=== PATIENT | female | born 1975 | race Hispanic/Latino ===

== ENCOUNTER 2017-01-11 09:18 | Day surgery (SDC) | payer MEDICARE ==
[~2017-01-11 09:18] MED LIST: ANCEF/STERILE WATER 2 GM/20 ML 2 GM/20 ML SYRINGE IV NR; NACL 0.9% 1000 ML 1,000 ML IV SCH
[2017-01-11] MEDS ORDERED: NACL 0.9% 500 ML 500 ML IV SCH (10:00)
[2017-01-11 10:15] LABS: Basophils % (Auto) 0.6 % (0.0-1.8); Eosinophils % (Auto) 8.7 % (0.0-4.3); Hematocrit 35.1 % (30.3-42.9); Mean Corpuscular HGB Conc 31 % (30-34); Mean Corpuscular Volume 82 fl (79-97); Platelet Count 254 K/mm3 (140-440); Red Blood Count 4.31 M/mm3 (3.65-5.03); Red Cell Distribution Width 16.4 % (13.2-15.2); White Blood Count 8.4 K/mm3 (4.5-11.0)
[2017-01-11] MEDS ORDERED: PERCOCET 5/325 PO ONE (10:15)
[2017-01-11 10:19] LABS: Mean Corpuscular Hemoglobin 26 pg (28-32)
[2017-01-11 10:26] LABS: Anion Gap 16 mmol/L; Blood Urea Nitrogen 8 mg/dL (7-17); Calcium 9.1 mg/dL (8.4-10.2); Carbon Dioxide 26 mmol/L (22-30); Chloride 99.7 mmol/L (98-107); Glucose 93 mg/dL (65-100); Potassium 4.8 mmol/L (3.6-5.0); Sodium 137 mmol/L (137-145)
[2017-01-11] MEDS ORDERED: TORADOL IV ONE (10:47)
[2017-01-11] MEDS ORDERED: TORADOL ONE (10:48)
[2017-01-11] MEDS ORDERED: NACL 0.9% 500 ML IR ONE (12:29)
[2017-01-11] MEDS ORDERED: BENADRYL ONE (12:29)
[2017-01-11] MEDS ORDERED: XYLOCAINE 1%/ EPI 1:100,000 INFILTRATI ONE (12:32)
[2017-01-11] MEDS ORDERED: ANCEF/STERILE WATER 2 GM/20 ML 2 GM/20 ML SYRINGE IV ONE (12:33)
[2017-01-11] MEDS: SUBLIMAZE ONE ×4 (12:55→13:18)
[2017-01-11] MEDS: VERSED ONE ×4 (12:55→13:18)
[2017-01-11] MEDS ORDERED: SILVER NITRATE TP ONE (13:13)
--- NOTE | 2017-01-11 13:48 | Short Stay Summary ---
Short Stay Documentation Date of service: 01/11/17 Narrative H&P: 41-year-old female with accidental dislodgment indwelling jejunostomy tube who presents for J-tube placement. - History H&P: obtained from office - Allergies and Medications Current Medications: Allergies ibuprofen Adverse Reaction (Verified 03/13/14 11:35) Swelling policosanol [From Lipex] Adverse Reaction (Verified 03/13/14 11:35) Unknown IV MORPHINE Allergy (Uncoded 09/10/14 11:01) Itching IV CONTRAST Adverse Reaction (Uncoded 03/13/14 11:09) Vomiting Home Medications Medication Instructions Recorded Confirmed Last Taken Type LORazepam [Ativan] 2 mg PO PRN PRN 03/13/14 01/11/17 12/14/15 21:00 History Oxycodone HCl/Acetaminophen 1 tab PO Q4HR PRN 03/13/14 01/11/17 01/11/17 05:30 History [Percocet 10-325 mg] 1 tab clonazePAM [clonazePAM] 1 mg PO HS PRN 01/11/17 01/11/17 01/10/17 History 1mg diphenhydrAMINE [Benadryl CAP] 50 mg PO PRN PRN 01/11/17 01/11/17 01/10/17 19: 30 History 50mg Active Medications Cefazolin Sodium (Ancef/Sterile Water 2 Gm/20 Ml) 2 gm in 20 mls @ 80 mls/hr IV PREOP NR PRN Reason: Protocol Stop: 01/11/17 23:00 Sodium Chloride (Nacl 0.9% 500 Ml) 500 mls @ 50 mls/hr IV DIRECT LAURA - Physical exam General appearance: no acute distress Lungs: Normal air movement Gastrointestinal: other (significant tenderness around the jejunostomy tube) - Brief post op/procedure progress note Date of procedure: 01/11/17 Pre-op diagnosis: Gastroparesis requiring feeding tube Post-op diagnosis: same Procedure: J tube placement Anesthesia: local (w/ conscious sedation) Surgeon: RADHA TURPIN Estimated blood loss: minimal Condition: stable - Hospital course Hospital course: Ready for discharge. Tolerated procedure well. - Disposition Condition at discharge: Stable Disposition: DC-01 TO HOME OR SELFCARE Short Stay Discharge Plan Activity: advance as tolerated Weight Bearing Status: Weight Bear as Tolerated Diet: advance as tolerated Wound: keep clean and dry Follow up with: SUDHIR CHAVEZ MD [Primary Care Provider] - 7 Days
--- NOTE | 2017-01-11 13:49 | Operative Report ---
Operative Report Operative Report: EXAM: 1. Fluoroscopic guided cannulation of the jejunostomy ostomy 2. Contrast injection in the jejunum 3. Fluoroscopic guided placement of a 18 Fr 2.3 cm stomal length low profile enteric tube in the jejunum. DATE: 01/11/17 LOAN SERVICING SPECIALIST: RADHA TURPIN MD INDICATION: Severe gastroparesis with long-standing jejunostomy tube with accidental dislodgment of tube and no existing jejunostomy tube. MEDICATIONS: Please see nursing report for full details. DEVICES: 18 Tajik 2.3 cm stomal length low profile enteric tube (Elizabeth-Luis Miguel) CONTRAST: Please see nursing report for full details. PROCEDURE: The risks, benefits, and alternatives were discussed with the patient; written informed consent was obtained. The patient's abdomen was prepped and draped in a sterile fashion with Betadine. Upon evaluation, there was chemical irritation around the jejunostomy tube due to leaking jejunal contents on the skin. There were slight excoriations in the tract. The tract was cannulated with an angled catheter and with the use of a Moseley wire, and was gently probed and the angled catheter was positioned in the jejunum. Contrast was injecting confirming position within the jejunum. The angled catheter was in the efferent limb of the jejunum. Moseley wire was passed through the catheter. After the tract was properly lubricated with sterile gel, I anesthetized the skin with 1% lidocaine. I then lubricated the enteric tube. Serial dilatation was performed. The enteric tube was advanced over the wire and positioned in the jejunum. The balloon was inflated with 3-4 mL of saline mixed with trace contrast. Wire was removed. Contrast was injected through the enteric tube ensuring that contrast could pass in both directions through the jejunum. No evidence of obstruction. The tube was injected with saline. No leakage of saline around the tube. Silver nitrate was then applied to the tract in order to cauterize the small excoriations around the tract. 4 x 4 was placed around the tube. Patient tolerated the procedure well. She was brought to the outpatient procedure unit in stable condition. FINDINGS: Please see above in procedure section. IMPRESSION: Successful fluoroscopic guided placement of a jejunostomy tube.
[2017-01-11 14:09] VITALS: BP 105/56
--- NOTE | 2017-01-16 15:13 | Addendum Note ---
- Addendum Date: 02/04/17 Note: Although already dictated and appropriately specified, I was requested to perform an addendum to indicate the type of chemical cauterization used on the granulation within the J tube tract. Silver nitrate, as previously specified, was used to chemically cauterize the granulation tissue in the J tube tract.
== END 2017-01-11 14:15 | disposition home or self-care (01) ==
LOC: OPU 09:18
PROVIDERS: ATTEND Radiology Diagnostic Radiology
DX: K94.13 Enterostomy malfunction (principal); K31.84 Gastroparesis; D64.9 Anemia, unspecified; K21.9 Gastro-esophageal reflux disease without esophagitis; F17.210 Nicotine dependence, cigarettes, uncomplicated; Z88.8 Allergy status to other drugs, medicaments and biological substances; Z88.5 Allergy status to narcotic agent; Z91.041 Radiographic dye allergy status; Z90.710 Acquired absence of both cervix and uterus; Z90.49 Acquired absence of other specified parts of digestive tract; Z90.3 Acquired absence of stomach [part of]; Z98.1 Arthrodesis status; Z98.890 Other specified postprocedural states; Z72.89 Other problems related to lifestyle; Z79.899 Other long term (current) drug therapy; Z83.3 Family history of diabetes mellitus; Z80.9 Family history of malignant neoplasm, unspecified; Y83.8 Other surgical procedures as the cause of abnormal reaction of the patient, or of later complication, without mention of misadventure at the time of the procedure
CPT/HCPCS: 17250; 36415; 49440; 80048; 85025; C1751; C1769; J0690; J1885; J2250; J3010; J1200; J2930; Q9967

== ENCOUNTER 2017-11-08 11:00 | Day surgery (SDC) | payer MEDICARE ==
[2017-11-08 11:49] LABS: Basophils # (Auto) 0.1 K/mm3 (0.0-0.1); Eosinophils # (Auto) 0.2 K/mm3 (0.0-0.4); Hematocrit 39.4 % (30.3-42.9); Hemoglobin 12.6 gm/dl (10.1-14.3); Lymphocytes # (Auto) 1.6 K/mm3 (1.2-5.4); Lymphocytes % (Auto) 20.7 % (13.4-35.0); Mean Corpuscular HGB Conc 32 % (30-34); Mean Corpuscular Hemoglobin 28 pg (28-32); Mean Corpuscular Volume 86 fl (79-97); Monocytes # (Auto) 0.7 K/mm3 (0.0-0.8); Monocytes % (Auto) 8.7 % (0.0-7.3); Platelet Count 260 K/mm3 (140-440); Red Blood Count 4.57 M/mm3 (3.65-5.03); Red Cell Distribution Width 19.7 % (13.2-15.2)
[2017-11-08 11:59] LABS: BUN/Creatinine Ratio 33; Blood Urea Nitrogen 13 mg/dL (7-17); Calcium 9.1 mg/dL (8.4-10.2); Hemolysis Index 2
[2017-11-08] MEDS ORDERED: DILAUDID IV NR (11:59)
[2017-11-08 12:00] LABS: INR 0.9 (0.87-1.13); Partial Thromboplastin Time 28.3 Sec. (24.2-36.6)
[2017-11-08] MEDS ORDERED: BENADRYL ONE (12:01)
[2017-11-08] MEDS ORDERED: BENADRYL IV ONE ×2 (12:16→13:37)
[2017-11-08] MEDS ORDERED: NACL 0.9% 500 ML IR ONE (13:43)
[2017-11-08] MEDS ORDERED: NACL 0.9% 250ML 250 ML ONE (13:51)
[2017-11-08] MEDS ORDERED: DILAUDID IV ONE (13:51)
[2017-11-08] MEDS ORDERED: XYLOCAINE 2% INFILTRATI ONE (13:58)
[2017-11-08] MEDS: VERSED ONE ×2 (14:00→14:03)
[2017-11-08] MEDS ORDERED: SILVER NITRATE TP ONE (14:00)
[2017-11-08] MEDS: SUBLIMAZE ONE ×2 (14:00→14:03)
[2017-11-08] MEDS ORDERED: VERSED ONE (14:03)
[2017-11-08] MEDS ORDERED: SUBLIMAZE ONE (14:03)
--- NOTE | 2017-11-08 14:45 | Short Stay Summary ---
Short Stay Documentation Date of service: 11/08/17 Narrative H&P: 41 year old female with J tube malfunction. - History Principal diagnosis: J tube malfunction, gastroparesis H&P: obtained from office - Allergies and Medications Current Medications: Allergies ibuprofen Adverse Reaction (Verified 03/13/14 11:35) Swelling policosanol [From Lipex] Adverse Reaction (Verified 03/13/14 11:35) Unknown IV MORPHINE Allergy (Uncoded 09/10/14 11:01) Itching IV CONTRAST Adverse Reaction (Uncoded 03/13/14 11:09) Vomiting Home Medications Medication Instructions Recorded Confirmed Last Taken Type LORazepam [Ativan] 2 mg PO PRN PRN 03/13/14 01/11/17 11/07/17 17:00 History 2mg Oxycodone HCl/Acetaminophen 1 tab PO Q4HR PRN 03/13/14 01/11/17 11/08/17 07:00 History [Percocet 10-325 mg] 10/325 Active Medications Hydromorphone HCl (Dilaudid) 0.5 mg IV ONCE NR Stop: 11/08/17 23:00 Last Admin: 11/08/17 12:09 Dose: 0.5 mg Cefazolin Sodium (Ancef/Sterile Water 2 Gm/20 Ml) 2 gm in 20 mls @ 80 mls/hr IV PREOP NR; Protocol Stop: 11/08/17 21:00 Sodium Chloride (Nacl 0.9% 1000 Ml) 1,000 mls @ 42 mls/hr IV DIRECT LAURA Methylprednisolone Sodium Succinate (Solu-Medrol) 125 mg IV PREOP NR Stop: 11/08/17 23:00 Last Admin: 11/08/17 12:10 Dose: 125 mg - Physical exam General appearance: no acute distress Lungs: Normal air movement Gastrointestinal: other (pain at J tube insertion) Extremities: normal temperature, normal color - Brief post op/procedure progress note Date of procedure: 11/08/17 Pre-op diagnosis: J tube malfunction, gastroparesis Post-op diagnosis: same Procedure: Silver nitrate application and J tube exchange Anesthesia: local (w/ conscious sedation) Surgeon: RADHA TURPIN Estimated blood loss: minimal Condition: stable - Hospital course Hospital course: Ready for discharge. - Disposition Condition at discharge: Stable Disposition: DC-01 TO HOME OR SELFCARE - Discharge Diagnoses (1) Gastroparesis Status: Acute (2) Jejunostomy tube leak Status: Acute (3) Jejunostomy tube site pain Status: Acute Short Stay Discharge Plan Activity: advance as tolerated Weight Bearing Status: Weight Bear as Tolerated Diet: advance as tolerated Wound: keep clean and dry, other (apply small amt of triple antibiotic to the area and use lidocaine gel to anesthetize as needed) Follow up with: SUDHIR CHAVEZ MD [Primary Care Provider] - 7 Days Forms: Post Sedation D/C Instructions
--- NOTE | 2017-11-08 14:45 | Operative Report ---
Operative Report Operative Report: EXAM: 1. Jejunostomy tube exchange under image guidance with contrast injection (18 Fr , 2.3 cm stomal length, 3-4 mL of fluid in balloon) 2. Silver nitrate application of granulation tissue at the jejunostomy tract Clinical indication: Female with severe gastroparesis requiring jejunostomy tube who presents for exchange with pain at the jejunostomy tube site. Patient was doing well for multiple months since prior exchange, at but within the last month has had increasing pain at the jejunostomy tube site. On clinical exam, there are some erosions at this site. Date: 11/08/17 Aircraft Hydraulic Equipment Mechanic: Nathan Shirley M.D. Medications: Conscious sedation using Versed and fentanyl was performed under guidance of radiologic nursing. Continuous cardiopulmonary monitoring was utilized. Procedure: Following an explanation of the risks, benefits, and alternatives; written informed consent was obtained. The patient was brought to the angiography suite and placed in supine position on the examination table. The jejunostomy tube site was prepped and draped in a sterile fashion. Jejunostomy tube site was evaluated. There are small skin erosions along the jejunostomy tube tract and on the skin adjacent to the tube. These areas are extremely painful to touch. Lidocaine was used to anesthetize the jejunostomy tube site. The tract had some granulation tissue within it which was painful. Contrast was injected to the existing jejunostomy tube demonstrating intraluminal positioning. 0.035 wire was advanced through the jejunostomy tube. The existing jejunostomy tube was removed over a wire (18 Fr ; 2.3 cm stomal length). A new jejunostomy tube (18 Fr ; 2.3 cm stomal length) was advanced over the wire. Balloon was insufflated with 3-4 mL of saline with extremely dilute contrast. The wire was removed. Contrast was injected confirming intraluminal position with both antegrade and retrograde flow of contrast. The balloon was not obstructing the jejunum. Silver nitrate was applied to the jejunostomy tube tract and the superficial skin areas. Patient was told to apply triple antibiotic mixed with lidocaine gel to the site in order to provide relief and allow healing. If this did not improve, she was to contact our office and we could provide her with further assistance. The patient tolerated the procedure well. No immediate postprocedural complication. Impression: 1. Successful jejunostomy tube exchange under fluoroscopic guidance. 2. Successful silver nitrate cauterization of granulation tissue.
[2017-11-08 16:27] VITALS: BP 131/77
== END 2017-11-08 14:50 | disposition home or self-care (01) ==
LOC: CATHLABREC 11:00
PROVIDERS: ATTEND Radiology Diagnostic Radiology
DX: K94.13 Enterostomy malfunction (principal); K31.84 Gastroparesis; K21.9 Gastro-esophageal reflux disease without esophagitis; F17.210 Nicotine dependence, cigarettes, uncomplicated; Z90.710 Acquired absence of both cervix and uterus; Z88.4 Allergy status to anesthetic agent; Z91.041 Radiographic dye allergy status; Z91.048 Other nonmedicinal substance allergy status; Z90.49 Acquired absence of other specified parts of digestive tract; Z95.5 Presence of coronary angioplasty implant and graft; Z79.01 Long term (current) use of anticoagulants; Y83.3 Surgical operation with formation of external stoma as the cause of abnormal reaction of the patient, or of later complication, without mention of misadventure at the time of the procedure
CPT/HCPCS: 17250; 36415; 49451; 80048; 85025; 85610; 85730; 96374; 96375; 96376; J1170; J2250; J2930; J3010; J7050; J1200; Q9967

== ENCOUNTER 2018-02-14 11:32 | Day surgery (SDC) | payer MEDICARE ==
[2018-02-14 12:44] LABS: Basophils # (Auto) 0.1 K/mm3 (0.0-0.1); Basophils % (Auto) 0.7 % (0.0-1.8); Eosinophils # (Auto) 0.3 K/mm3 (0.0-0.4); Hematocrit 40.6 % (30.3-42.9); Hemoglobin 14.1 gm/dl (10.1-14.3); Lymphocytes # (Auto) 1.4 K/mm3 (1.2-5.4); Mean Corpuscular HGB Conc 35 % (30-34); Mean Corpuscular Hemoglobin 32 pg (28-32); Mean Corpuscular Volume 93 fl (79-97); Monocytes # (Auto) 0.5 K/mm3 (0.0-0.8); Monocytes % (Auto) 5.5 % (0.0-7.3); Platelet Count 254 K/mm3 (140-440); Red Blood Count 4.35 M/mm3 (3.65-5.03); Red Cell Distribution Width 13.5 % (13.2-15.2)
[2018-02-14 12:54] LABS: BUN/Creatinine Ratio 30; Blood Urea Nitrogen 12 mg/dL (7-17); Hemolysis Index 7
[2018-02-14 12:55] LABS: INR 1.46 (0.87-1.13)
[2018-02-14 12:56] LABS: Partial Thromboplastin Time 36.8 Sec. (24.2-36.6)
[2018-02-14] MEDS ORDERED: ANCEF/STERILE WATER 2 GM/20 ML 0 GM/0 ML SYRINGE IV ONE (13:24)
[2018-02-14] MEDS ORDERED: NACL 0.9% 500 ML IR ONE (13:24)
[2018-02-14] MEDS ORDERED: VERSED ONE (13:24)
[2018-02-14] MEDS ORDERED: XYLOCAINE 2% INFILTRATI ONE (13:24)
[2018-02-14] MEDS ORDERED: PEPCID IV ONE (13:32)
[2018-02-14] MEDS ORDERED: SILVER NITRATE TP ONE (13:32)
[2018-02-14] MEDS ORDERED: BENADRYL IV ONE (13:32)
[2018-02-14] MEDS ORDERED: BENADRYL ONE (13:34)
[2018-02-14] MEDS ORDERED: SODIUM BICARBONATE IV ONE (14:17)
[2018-02-14] MEDS: SUBLIMAZE ONE ×4 (14:20→14:39)
[2018-02-14] MEDS: VERSED ONE ×2 (14:26→14:33)
--- NOTE | 2018-02-14 15:15 | Short Stay Summary ---
Short Stay Documentation Date of service: 02/14/18 Narrative H&P: 42 year old female with J tube exchange - History Principal diagnosis: J tube leakage H&P: obtained from office - Allergies and Medications Current Medications: Allergies ibuprofen Adverse Reaction (Verified 03/13/14 11:35) Swelling policosanol [From Lipex] Adverse Reaction (Verified 03/13/14 11:35) Unknown IV MORPHINE Allergy (Uncoded 09/10/14 11:01) Itching IV CONTRAST Adverse Reaction (Uncoded 03/13/14 11:09) Vomiting Home Medications Medication Instructions Recorded Confirmed Last Taken Type LORazepam [Ativan] 2 mg PO PRN PRN 03/13/14 01/11/17 02/11/18 History 2 mg Oxycodone HCl/Acetaminophen 1 tab PO Q4HR PRN 03/13/14 01/11/17 02/14/18 08:00 History [Percocet 10-325 mg] 1 tab Active Medications Cefazolin Sodium (Ancef/Sterile Water 2 Gm/20 Ml) 2 gm in 20 mls @ 80 mls/hr IV PREOP NR; Protocol Stop: 02/14/18 23:59 Sodium Chloride (Nacl 0.9% 1000 Ml) 1,000 mls @ 42 mls/hr IV DIRECT LAURA Last Admin: 02/14/18 12:54 Dose: 42 mls/hr - Physical exam General appearance: mild distress (from J tube site) Lungs: Normal air movement Gastrointestinal: tenderness (at J tube site) - Brief post op/procedure progress note Date of procedure: 02/14/18 Pre-op diagnosis: J tube malfunction Post-op diagnosis: same Procedure: Silver nitrate cauterization J tube exchange Anesthesia: local (w/ conscious sedation) Surgeon: RADHA TURPIN Estimated blood loss: minimal Condition: stable - Hospital course Hospital course: Tolerated procedure well. Ready for discharge. - Disposition Condition at discharge: Stable Disposition: DC-01 TO HOME OR SELFCARE - Discharge Diagnoses (1) Gastroparesis Status: Acute (2) Jejunostomy tube leak Status: Acute (3) Jejunostomy tube site pain Status: Acute Short Stay Discharge Plan Activity: advance as tolerated Weight Bearing Status: Weight Bear as Tolerated Diet: regular Wound: keep clean and dry Additional Instructions: Notify Primary Medical Doctor for any bleeding or swelling to site, follow up with Primary Medical Doctor in 1 week, return to (ER) emergency Room for medical emergencies. Follow up with: SUDHIR CHAVEZ MD [Primary Care Provider] - 7 Days
[2018-02-14 15:33] VITALS: BP 118/65
--- NOTE | 2018-02-14 16:10 | Operative Report ---
Operative Report Operative Report: EXAM: 1. Jejunostomy tube exchange under image guidance with contrast injection (18 Fr , 2.3 cm stomal length, 10 mL of fluid in balloon) 2. Silver nitrate application of granulation tissue at the jejunostomy tract Clinical indication: 42 year old female with bowel surgery and gastroparesis requiring jejunostomy tube who presents for exchange with pain at the jejunostomy tube site. Date: 02/14/18 Research & Analytics Manager: Nathan Shirley M.D. Medications: Conscious sedation using Versed and fentanyl was performed under guidance of radiologic nursing. Continuous cardiopulmonary monitoring was utilized. Procedure: Following an explanation of the risks, benefits, and alternatives; written informed consent was obtained. The patient was brought to the angiography suite and placed in supine position on the examination table. The jejunostomy tube site was prepped and draped in a sterile fashion. Jejunostomy tube site was evaluated. There are small skin erosions along the jejunostomy tube tract and on the skin adjacent to the tube. These areas are extremely painful to touch. Lidocaine buffered with bicarb was used to anesthetize the jejunostomy tube site. The tract had some granulation tissue within it which was painful. Contrast was injected to the existing jejunostomy tube demonstrating intraluminal positioning. 0.035 wire was advanced through the jejunostomy tube. The existing jejunostomy tube was removed over a wire (18 Fr ; 2.3 cm stomal length). A new jejunostomy tube (18 Fr ; 2.3 cm stomal length) was advanced over the wire. Balloon was insufflated with 10 mL of saline with extremely dilute contrast. The wire was removed. Contrast was injected confirming intraluminal position with both antegrade and retrograde flow of contrast. The balloon was not obstructing the jejunum. Silver nitrate was applied to the jejunostomy tube tract and the superficial skin areas. Patient was told to apply triple antibiotic mixed with lidocaine gel to the site in order to provide relief and allow healing. If this did not improve, she was to contact our office and we could provide her with further assistance. The patient tolerated the procedure well. No immediate postprocedural complication. Impression: 1. Successful jejunostomy tube exchange under fluoroscopic guidance. 2. Successful silver nitrate cauterization of granulation tissue. PLAN: Given recurrent pain at the jejunostomy site, if this does not resolve her discomfort, she may need a surgically placed GJ tube to prevent leakage from the tube as well as provide nutrition. Discussed with patient and Dr. Garza.
== END 2018-02-14 11:33 | disposition home or self-care (01) ==
LOC: CATHLABREC 11:32
PROVIDERS: ATTEND Radiology Diagnostic Radiology
DX: T85.698A Other mechanical complication of other specified internal prosthetic devices, implants and grafts, initial encounter (principal); K21.9 Gastro-esophageal reflux disease without esophagitis; K31.84 Gastroparesis; F17.210 Nicotine dependence, cigarettes, uncomplicated; Z90.49 Acquired absence of other specified parts of digestive tract; Z98.890 Other specified postprocedural states; Z79.899 Other long term (current) drug therapy; Z88.6 Allergy status to analgesic agent; Z79.01 Long term (current) use of anticoagulants; Y83.2 Surgical operation with anastomosis, bypass or graft as the cause of abnormal reaction of the patient, or of later complication, without mention of misadventure at the time of the procedure
CPT/HCPCS: 17250; 36415; 49451; 80048; 85025; 85610; 85730; 96374; 96375; J1200; J2250; J3010; J7030; J0690

== ENCOUNTER 2018-07-18 10:02 | Inpatient (IN) | payer MEDICARE ==
[2018-07-18] MEDS ORDERED: XYLOCAINE 1% MPF 5 mL ONE (10:15)
[2018-07-18 11:52] LABS: Basophils % (Auto) 0.3 % (0.0-1.8); Eosinophils # (Auto) 0.4 K/mm3 (0.0-0.4); Eosinophils % (Auto) 5.7 % (0.0-4.3); Hematocrit 39.2 % (30.3-42.9); Hemoglobin 13.3 gm/dl (10.1-14.3); Lymphocytes # (Auto) 1.2 K/mm3 (1.2-5.4); Lymphocytes % (Auto) 16.8 % (13.4-35.0); Mean Corpuscular HGB Conc 34 % (30-34); Mean Corpuscular Volume 95 fl (79-97); Monocytes # (Auto) 0.6 K/mm3 (0.0-0.8); Monocytes % (Auto) 8.2 % (0.0-7.3); Platelet Count 103 K/mm3 (140-440); Red Blood Count 4.12 M/mm3 (3.65-5.03); Red Cell Distribution Width 13.9 % (13.2-15.2)
[2018-07-18 12:05] LABS: INR 0.87 (0.87-1.13); Partial Thromboplastin Time 29.2 Sec. (24.2-36.6)
[2018-07-18 12:15] LABS: Alanine Aminotransferase 202 units/L (7-56); Albumin 3.6 g/dL (3.9-5); BUN/Creatinine Ratio 20; Blood Urea Nitrogen 10 mg/dL (7-17); Calcium 9.1 mg/dL (8.4-10.2); Hemolysis Index 8
[2018-07-18] MEDS ORDERED: TYLENOL PO ONE (12:46)
--- NOTE | 2018-07-18 13:07 | Emergency Department Report ---
ED General Adult HPI - General Chief complaint: Fever Stated complaint: IV INFECTION Time Seen by Provider: 07/18/18 10:57 Source: patient Mode of arrival: Ambulatory Limitations: No Limitations - History of Present Illness Initial comments: The patient presents to the emergency department with a chief complaint of a possible infection of a Dan catheter. Patient states she was supposed to come yesterday to be admitted but cannot make it. Patient complains of fevers and chills at home. Patient denies any chest pain, shortness of breath, or abd ominal pain. -: Gradual Severity scale (0 -10): 1 Consistency: constant Improves with: none Worsens with: none Associated Symptoms: denies other symptoms Treatments Prior to Arrival: none - Related Data Home Medications Medication Instructions Recorded Confirmed Last Taken LORazepam [Ativan] 2 mg PO PRN PRN 03/13/14 01/11/17 02/11/18 2 mg Oxycodone HCl/Acetaminophen 1 tab PO Q4HR PRN 03/13/14 01/11/17 02/14/18 08:00 [Percocet 10-325 mg] 1 tab Previous Rx's Medication Instructions Recorded Last Taken Type oxyCODONE /ACETAMINOPHEN [Percocet 1 tab PO Q6HR PRN #20 tablet 04/25/18 Unknown Rx 5/325 mg] Total Parenteral Nutrition [TPN 1,992 ml IV DAILY@1999 #1 bag 04/26/18 Unknown Rx Adult] Allergies Allergy/AdvReac Type Severity Reaction Status Date / Time ibuprofen AdvReac Swelling Verified 07/18/18 10:16 policosanol [From Lipex] AdvReac Unknown Verified 07/18/18 10:16 IV MORPHINE Allergy Itching Uncoded 09/10/14 11:01 IV CONTRAST AdvReac Vomiting Uncoded 03/13/14 11:09 ED Review of Systems ROS: Stated complaint: IV INFECTION Other details as noted in HPI Comment: All other systems reviewed and negative Constitutional: denies: chills, fever Eyes: denies: eye pain, eye discharge, vision change ENT: denies: ear pain, throat pain Respiratory: denies: cough, shortness of breath, wheezing Cardiovascular: denies: chest pain, palpitations Endocrine: no symptoms reported Gastrointestinal: denies: abdominal pain, nausea, diarrhea Genitourinary: denies: urgency, dysuria, discharge Musculoskeletal: denies: back pain, joint swelling, arthralgia Skin: denies: rash, lesions Neurological: denies: headache, weakness, paresthesias Psychiatric: denies: anxiety, depression Hematological/Lymphatic: denies: easy bleeding, easy bruising ED Past Medical Hx - Past Medical History Previous Medical History?: Yes Hx GERD: Yes Hx HIV: No Additional medical history: gastropresis - Surgical History Past Surgical History?: Yes Hx Cholecystectomy: Yes Hx Breast Surgery: Yes (implants) Additional Surgical History: neck surgery, abdominal surgeries, hysterectomy, feeding tube, dan cath - Social History Smoking Status: Current Every Day Smoker Substance Use Type: None - Medications Home Medications: Home Medications Medication Instructions Recorded Confirmed Last Taken Type LORazepam [Ativan] 2 mg PO PRN PRN 03/13/14 01/11/17 02/11/18 History 2 mg Oxycodone HCl/Acetaminophen 1 tab PO Q4HR PRN 03/13/14 01/11/17 02/14/18 08:00 History [Percocet 10-325 mg] 1 tab oxyCODONE /ACETAMINOPHEN [Percocet 1 tab PO Q6HR PRN #20 tablet 04/25/18 Unknown Rx 5/325 mg] Total Parenteral Nutrition [TPN 1,992 ml IV DAILY@1999 #1 bag 04/26/18 Unknown Rx Adult] ED Physical Exam - General Limitations: No Limitations General appearance: alert, in no apparent distress - Head Head exam: Present: atraumatic, normocephalic - Eye Eye exam: Present: normal appearance, PERRL, EOMI - ENT ENT exam: Present: mucous membranes moist - Neck Neck exam: Present: normal inspection - Respiratory Respiratory exam: Present: normal lung sounds bilaterally, other (as to the area surrounding the Dan). Absent: respiratory distress, wheezes, rales - Cardiovascular Cardiovascular Exam: Present: regular rate, normal rhythm. Absent: systolic murmur, diastolic murmur, rubs, gallop - GI/Abdominal GI/Abdominal exam: Present: soft, normal bowel sounds, other (J tube present). Absent: distended, tenderness - Extremities Exam Extremities exam: Present: normal inspection - Back Exam Back exam: Present: normal inspection - Neurological Exam Neurological exam: Present: alert, oriented X3, CN II-XII intact. Absent: motor sensory deficit - Psychiatric Psychiatric exam: Present: normal affect, normal mood - Skin Skin exam: Present: warm, dry, intact, normal color. Absent: rash ED Course Vital Signs 07/18/18 07/18/18 10:09 11:00 Temperature 98.2 F Pulse Rate 74 Respiratory 20 18 Rate Blood Pressure 117/65 O2 Sat by Pulse 99 Oximetry ED Medical Decision Making - Lab Data Result diagrams: 07/18/18 11:31 07/18/18 11:31 Lab Results 07/18/18 07/18/18 07/18/18 Range/Units 11:31 11:31 11:31 WBC 7.3 (4.5-11.0) K/mm3 RBC 4.12 (3.65-5.03) M/mm3 Hgb 13.3 (10.1-14.3) gm/dl Hct 39.2 (30.3-42.9) % MCV 95 (79-97) fl MCH 32 (28-32) pg MCHC 34 (30-34) % RDW 13.9 (13.2-15.2) % Plt Count 103 L (140-440) K/mm3 Lymph % (Auto) 16.8 (13.4-35.0) % Mcculloch % (Auto) 8.2 H (0.0-7.3) % Eos % (Auto) 5.7 H (0.0-4.3) % Baso % (Auto) 0.3 (0.0-1.8) % Lymph # 1.2 (1.2-5.4) K/mm3 Mcculloch # 0.6 (0.0-0.8) K/mm3 Eos # 0.4 (0.0-0.4) K/mm3 Baso # 0.0 (0.0-0.1) K/mm3 Seg Neutrophils % 69.0 (40.0-70.0) % Seg Neutrophils # 5.0 (1.8-7.7) K/mm3 PT (12.2-14.9) Sec. INR (0.87-1.13) APTT (24.2-36.6) Sec. Sodium 140 (137-145) mmol/L Potassium 4.8 (3.6-5.0) mmol/L Chloride 101.8 (98-107) mmol/L Carbon Dioxide 27 (22-30) mmol/L Anion Gap 16 mmol/L BUN 10 (7-17) mg/dL Creatinine 0.5 L (0.7-1.2) mg/dL Estimated GFR > 60 ml/min BUN/Creatinine Ratio 20 % Glucose 97 (65-100) mg/dL Lactic Acid 1.00 (0.7-2.0) mmol/L Calcium 9.1 (8.4-10.2) mg/dL Total Bilirubin 0.30 (0.1-1.2) mg/dL AST 38 (5-40) units/L ALT 202 H (7-56) units/L Alkaline Phosphatase 182 H (35-129) units/L Total Protein 7.2 (6.3-8.2) g/dL Albumin 3.6 L (3.9-5) g/dL Albumin/Globulin Ratio 1.0 % / Range/Units 11:31 WBC (4.5-11.0) K/mm3 RBC (3.65-5.03) M/mm3 Hgb (10.1-14.3) gm/dl Hct (30.3-42.9) % MCV (79-97) fl MCH (28-32) pg MCHC (30-34) % RDW (13.2-15.2) % Plt Count (140-440) K/mm3 Lymph % (Auto) (13.4-35.0) % Mcculloch % (Auto) (0.0-7.3) % Eos % (Auto) (0.0-4.3) % Baso % (Auto) (0.0-1.8) % Lymph # (1.2-5.4) K/mm3 Mcculloch # (0.0-0.8) K/mm3 Eos # (0.0-0.4) K/mm3 Baso # (0.0-0.1) K/mm3 Seg Neutrophils % (40.0-70.0) % Seg Neutrophils # (1.8-7.7) K/mm3 PT 12.2 (12.2-14.9) Sec. INR 0.87 (0.87-1.13) APTT 29.2 (24.2-36.6) Sec. Sodium (137-145) mmol/L Potassium (3.6-5.0) mmol/L Chloride (98-107) mmol/L Carbon Dioxide (22-30) mmol/L Anion Gap mmol/L BUN (7-17) mg/dL Creatinine (0.7-1.2) mg/dL Estimated GFR ml/min BUN/Creatinine Ratio % Glucose (65-100) mg/dL Lactic Acid (0.7-2.0) mmol/L Calcium (8.4-10.2) mg/dL Total Bilirubin (0.1-1.2) mg/dL AST (5-40) units/L ALT (7-56) units/L Alkaline Phosphatase (35-129) units/L Total Protein (6.3-8.2) g/dL Albumin (3.9-5) g/dL Albumin/Globulin Ratio % - Medical Decision Making Discussed patient with Dr. Garza and the plan is for the patient to be admitted to have the Dan catheter replaced by Dr. Shirley Critical care attestation.: If time is entered above; I have spent that time in minutes in the direct care of this critically ill patient, excluding procedure time. ED Disposition Clinical Impression: Local infection due to Dan catheter Disposition: OP ADMIT IP TO THIS HOSP Is pt being admited?: Yes Does the pt Need Aspirin: No Condition: Fair Referrals: PRIMARY CARE, [Primary Care Provider] - 3-5 Days
[2018-07-18] MEDS ORDERED: NACL 0.9% 1000 ML IV ONE (13:08)
[2018-07-18] MEDS ORDERED: MAXIPIME/NS 2 GM/100 ML 2 GM/100 ML BAG IV ONE (13:10)
--- NOTE | 2018-07-18 13:17 | XRay Report ---
AP CHEST: HISTORY: Foster infection AP view of the chest demonstrates a normal mediastinal and cardiac contour with clear lungs and normal bony and soft tissue structures. IMPRESSION: Unremarkable AP chest.
--- NOTE | 2018-07-18 16:41 | Consultation ---
History of Present Illness - Reason for Consult Consult date: 07/18/18 - History of Present Illness She is 42 year female known to our practice for placement and management Foster catheter and Feeding tube. Her Foster catheter was placed in April 2018. On Sunday, she developed fever and chills and started not feeling well. Since she had been having cold symptoms for few days, she thought this was causing her symptoms. She was evaluated by her PCP Dr. Tomi dey on Ceftin for respiratory infection. Her symptoms continued despite management of her cold symptoms and she noticed her fever and chills would start usually about 30 minutes after starting her TPN through her catheter. She forgot to flush her catheter after use once this week and flushed the next day. The symptoms occurred with this as well. She present to Emergency Department for evaluation and vascular consult requested. Past History Past Medical History: other (Gastroporesis, anxiety) Past Surgical History: hysterectomy, Other (Right Foster catheter, Gastrostomy tube , spine surgery) Social history: , smoking Medications and Allergies Allergies Allergy/AdvReac Type Severity Reaction Status Date / Time ibuprofen AdvReac Swelling Verified 07/18/18 10:16 policosanol [From Lipex] AdvReac Unknown Verified 07/18/18 10:16 IV MORPHINE Allergy Itching Uncoded 09/10/14 11:01 IV CONTRAST AdvReac Vomiting Uncoded 03/13/14 11:09 Home Medications Medication Instructions Recorded Confirmed Last Taken Type LORazepam [Ativan] 2 mg PO PRN PRN 03/13/14 07/18/18 02/11/18 History 2 mg Oxycodone HCl/Acetaminophen 1 tab PO Q4HR PRN 03/13/14 07/18/18 02/14/18 08:00 History [Percocet 10-325 mg] 1 tab cefUROXime [Ceftin] 500 mg PO Q12H 07/18/18 07/18/18 Unknown History Review of Systems Constitutional: fever, chills Cardiovascular: no chest pain, no palpitations, no shortness of breath Respiratory: cough, congestion Gastrointestinal: no abdominal pain, no nausea, no vomiting Exam - Constitutional Vitals: Temp Pulse Resp BP Pulse Ox 98.2 F 74 16 117/69 99 07/18/18 16:07 07/18/18 16:07 07/18/18 16:07 07/18/18 16:07 07/18/18 16:07 General appearance: Present: other (Thin ) - Neck Neck: Present: supple, normal ROM - Respiratory Respiratory effort: normal, other (nonlabored at rest) Respiratory: bilateral: CTA - Cardiovascular Rhythm: regular Heart Sounds: Present: S1 & S2 - Extremities Extremities: pulses intact, No edema - Abdominal General gastrointestinal: Present: soft, non-tender, other (Gastrostomy tube pr esent no redness no tenderness at site) - Integumentary Integumentary: Present: warm, dry, normal turgor - Psychiatric Psychiatric: appropriate mood/affect, memory intact, cooperative - Neurologic Neurologic: CNII-XII intact, no focal deficits, moves all extremities Results - Labs CBC & Chem 7: 07/18/18 11:31 07/18/18 11:31 Labs: Abnormal lab results 07/18/18 07/18/18 Range/Units 11:31 11:31 Plt Count 103 L (140-440) K/mm3 [place] % (Auto) 8.2 H (0.0-7.3) % Eos % (Auto) 5.7 H (0.0-4.3) % Creatinine 0.5 L (0.7-1.2) mg/dL ALT 202 H (7-56) units/L Alkaline Phosphatase 182 H (35-129) units/L Albumin 3.6 L (3.9-5) g/dL - Imaging and Cardiology Chest x-ray: report reviewed Assessment and Plan Fever She is having fever associated with use of her Foster catheter. Will have her evaluated by ID to determine if she needs removal of catheter with line holiday or may remove the catheter and replace with new catheter. Gastoporesis Her Gastrostomy tube is functioning well and per her reports having no issues. Looks good on exam.
[2018-07-18] MEDS: DILAUDID IV PRN ×2 (17:49→22:18)
[2018-07-18 18:53] LABS: Bacteria,Urine 1+ /HPF (Negative); Bilirubin,Urine NEG (Negative); Blood,Urine NEG (Negative); Color,Urine Amber (Yellow); Mucus,Urine FEW /HPF; Protein,Urine <15 mg/dL mg/dL (Negative); WBC,Urine < 1.0 /HPF (0.0-6.0)
[2018-07-19] MEDS: DILAUDID IV PRN ×7 (01:15→23:33)
[2018-07-19] MEDS ORDERED: VANCOMYCIN PHARMACY TO DOSE IV SCH (02:00)
--- NOTE | 2018-07-19 02:06 | History and Physical Report ---
History of Present Illness Date of examination: 07/18/18 Date of admission: 07/18/18 13:12 Chief complaint: Fever and chills for 4 days. History of present illness: 42 y/o female with severe Gastropareis on TPN via Dan catheter has been having fever and chills for last 4 days mary after TPN feeds.Forgot flushing one day.Patient was treatied with Ceftin by her PCP for URI symptoms.No response.No Sob or chest pain. Past Medical History Previous Medical History?: Yes Hx GERD: Yes Additional medical history: gastropresis Surgical History Past Surgical History?: Yes Hx Cholecystectomy: Yes Hx Breast Surgery: Yes (implants) Additional Surgical History: neck surgery, abdominal surgeries, hysterectomy, feeding tube, dan cath Social History Smoking Status: Current Every Day Smoker Substance Use Type: None Medications Home Medications: Home Medications Medication Instructions Recorded Confirmed Last Taken Type LORazepam [Ativan] 2 mg PO PRN PRN 03/13/14 01/11/17 02/11/18 History 2 mg Oxycodone HCl/Acetaminophen 1 tab PO Q4HR PRN 03/13/14 01/11/17 02/14/18 08:00 History [Percocet 10-325 mg] 1 tab oxyCODONE /ACETAMINOPHEN [Percocet 1 tab PO Q6HR PRN #20 tablet 04/25/18 Unknown Rx 5/325 mg] Total Parenteral Nutrition [TPN 1,992 ml IV DAILY@1999 #1 bag 04/26/18 Unknown Rx Adult] Review of systems ROS: Stated complaint: IV INFECTION Other details as noted in HPI Comment: All other systems reviewed and negative Constitutional: denies: chills, fever Eyes: denies: eye pain, eye discharge, vision change ENT: denies: ear pain, throat pain Respiratory: denies: cough, shortness of breath, wheezing Cardiovascular: denies: chest pain, palpitations Endocrine: no symptoms reported Gastrointestinal: denies: abdominal pain, nausea, diarrhea Genitourinary: denies: urgency, dysuria, discharge Musculoskeletal: denies: back pain, joint swelling, arthralgia Skin: denies: rash, lesions Neurological: denies: headache, weakness, paresthesias Psychiatric: denies: anxiety, depression Hematological/Lymphatic: denies: easy bleeding, easy bruising Past History Past Medical History: other (Gastroporesis, anxiety) Past Surgical History: hysterectomy, Other (Right Dan catheter, Gastrostomy tube , spine surgery) Social history: , smoking Medications and Allergies Allergies Allergy/AdvReac Type Severity Reaction Status Date / Time ibuprofen AdvReac Swelling Verified 07/18/18 10:16 policosanol [From Lipex] AdvReac Unknown Verified 07/18/18 10:16 IV MORPHINE Allergy Itching Uncoded 09/10/14 11:01 IV CONTRAST AdvReac Vomiting Uncoded 03/13/14 11:09 Home Medications Medication Instructions Recorded Confirmed Last Taken Type LORazepam [Ativan] 2 mg PO PRN PRN 03/13/14 07/18/18 02/11/18 History 2 mg Oxycodone HCl/Acetaminophen 1 tab PO Q4HR PRN 03/13/14 07/18/18 02/14/18 08:00 History [Percocet 10-325 mg] 1 tab cefUROXime [Ceftin] 500 mg PO Q12H 07/18/18 07/18/18 Unknown History Active Meds: Active Medications Hydromorphone HCl (Dilaudid) 0.5 mg IV Q3H PRN PRN Reason: Pain , Severe (7-10) Last Admin: 07/19/18 01:15 Dose: 0.5 mg Documented by: Cefepime HCl (Maxipime/Ns 2 Gm/100 Ml) 2 gm in 100 mls @ 200 mls/hr IV Q8H LAURA; Protocol Vancomycin HCl (Vancomycin/Ns 1 Gm/250 Ml) 1 gm in 250 mls @ 250 mls/hr IV ONCE ONE Stop: 07/19/18 04:59 Vancomycin HCl 750 mg/ Sodium (Chloride) 265 mls @ 166.667 mls/hr IV Q12H LAURA Lorazepam (Ativan) 1 mg PO Q8H PRN PRN Reason: Anxiety Oxycodone HCl (Roxicodone) 5 mg PO Q4H PRN PRN Reason: Pain, Moderate (4-6) Oxycodone/Acetaminophen (Percocet 5/325) 1 tab PO Q4H PRN PRN Reason: Pain Exam - Constitutional Vitals: Temp Pulse Resp BP Pulse Ox 98.2 F 74 16 117/69 99 07/18/18 16:07 07/18/18 16:07 07/19/18 01:15 07/18/18 16:07 07/18/18 16:07 General appearance: Present: no acute distress, well-nourished - EENT Eyes: Present: PERRL ENT: hearing intact, clear oral mucosa - Neck Neck: Present: supple, normal ROM - Respiratory Respiratory effort: normal Respiratory: bilateral: CTA - Cardiovascular Heart rate: 78 Rhythm: regular Heart Sounds: Present: S1 & S2. Absent: rub, click - Extremities Extremities: no ischemia, pulses intact, pulses symmetrical, No edema Peripheral Pulses: within normal limits - Abdominal General gastrointestinal: Present: soft, non-tender, non-distended, normal bowel sounds Female genitourinary: Present: normal - Rectal Rectal Exam: deferred - Integumentary Integumentary: Present: clear, warm, dry - Musculoskeletal Musculoskeletal: gait normal, strength equal bilaterally - Psychiatric Psychiatric: appropriate mood/affect, intact judgment & insight - Neurologic Neurologic: CNII-XII intact, moves all extremities - Allied Health Allied health notes reviewed: nursing, case management Results - Labs CBC & Chem 7: 07/18/18 11:31 07/18/18 11:31 Labs: Laboratory Last Values WBC 7.3 K/mm3 (4.5-11.0) 07/18/18 11:31 RBC 4.12 M/mm3 (3.65-5.03) 07/18/18 11:31 Hgb 13.3 gm/dl (10.1-14.3) 07/18/18 11:31 Hct 39.2 % (30.3-42.9) 07/18/18 11:31 MCV 95 fl (79-97) 07/18/18 11:31 MCH 32 pg (28-32) 07/18/18 11:31 MCHC 34 % (30-34) 07/18/18 11:31 RDW 13.9 % (13.2-15.2) 07/18/18 11:31 Plt Count 103 K/mm3 (140-440) L 07/18/18 11:31 Lymph % (Auto) 16.8 % (13.4-35.0) 07/18/18 11:31 [place] % (Auto) 8.2 % (0.0-7.3) H 07/18/18 11:31 Eos % (Auto) 5.7 % (0.0-4.3) H 07/18/18 11:31 Baso % (Auto) 0.3 % (0.0-1.8) 07/18/18 11:31 Lymph # 1.2 K/mm3 (1.2-5.4) 07/18/18 11:31 [place] # 0.6 K/mm3 (0.0-0.8) 07/18/18 11:31 Eos # 0.4 K/mm3 (0.0-0.4) 07/18/18 11:31 Baso # 0.0 K/mm3 (0.0-0.1) 07/18/18 11:31 Seg Neutrophils % 69.0 % (40.0-70.0) 07/18/18 11:31 Seg Neutrophils # 5.0 K/mm3 (1.8-7.7) 07/18/18 11:31 PT 12.2 Sec. (12.2-14.9) 07/18/18 11:31 INR 0.87 (0.87-1.13) 07/18/18 11:31 APTT 29.2 Sec. (24.2-36.6) 07/18/18 11:31 Sodium 140 mmol/L (137-145) 07/18/18 11:31 Potassium 4.8 mmol/L (3.6-5.0) 07/18/18 11:31 Chloride 101.8 mmol/L (98-107) 07/18/18 11:31 Carbon Dioxide 27 mmol/L (22-30) 07/18/18 11:31 Anion Gap 16 mmol/L 07/18/18 11:31 BUN 10 mg/dL (7-17) 07/18/18 11:31 Creatinine 0.5 mg/dL (0.7-1.2) L 07/18/18 11:31 Estimated GFR > 60 ml/min 07/18/18 11:31 BUN/Creatinine Ratio 20 % 07/18/18 11:31 Glucose 97 mg/dL (65-100) 07/18/18 11:31 Lactic Acid 1.00 mmol/L (0.7-2.0) 07/18/18 11:31 Calcium 9.1 mg/dL (8.4-10.2) 07/18/18 11:31 Total Bilirubin 0.30 mg/dL (0.1-1.2) 07/18/18 11:31 AST 38 units/L (5-40) 07/18/18 11:31 ALT 202 units/L (7-56) H 07/18/18 11:31 Alkaline Phosphatase 182 units/L (35-129) H 07/18/18 11:31 Total Protein 7.2 g/dL (6.3-8.2) 07/18/18 11:31 Albumin 3.6 g/dL (3.9-5) L 07/18/18 11:31 Albumin/Globulin Ratio 1.0 % 07/18/18 11:31 Urine Color Loli (Yellow) 07/18/18 13:56 Urine Turbidity Clear (Clear) 07/18/18 13:56 Urine pH 6.0 (5.0-7.0) 07/18/18 13:56 Ur Specific [place] 1.015 (1.003-1.030) 07/18/18 13:56 Urine Protein <15 mg/dl mg/dL (Negative) 07/18/18 13:56 Urine Glucose (UA) Neg mg/dL (Negative) 07/18/18 13:56 Urine Ketones Neg mg/dL (Negative) 07/18/18 13:56 Urine Blood Neg (Negative) 07/18/18 13:56 Urine Nitrite Neg (Negative) 07/18/18 13:56 Urine Bilirubin Neg (Negative) 07/18/18 13:56 Urine Urobilinogen 2.0 mg/dL (<2.0) 07/18/18 13:56 Ur Leukocyte Esterase Neg (Negative) 07/18/18 13:56 Urine WBC (Auto) < 1.0 /HPF (0.0-6.0) 07/18/18 13:56 Urine RBC (Auto) 2.0 /HPF (0.0-6.0) 07/18/18 13:56 U Epithel Cells (Auto) 5.0 /HPF (0-13.0) 07/18/18 13:56 Urine Bacteria (Auto) 1+ /HPF (Negative) 07/18/18 13:56 Urine Mucus Few /HPF 07/18/18 13:56 - Imaging and Cardiology Chest x-ray: report reviewed (NAF) Assessment and Plan Advance Directives: Yes (Full code) VTE prophylaxis?: Chemical Plan of care discussed with patient/family: Yes - Patient Problems (1) Line sepsis Current Visit: Yes Status: Acute Qualifiers: Encounter type: initial encounter Qualified Code(s): T85.79XA - Infection and inflammatory reaction due to other internal prosthetic devices, implants and grafts, initial encounter; A41.9 - Sepsis, unspecified organism Plan to address problem: Possible Bacteremia sec to Dan catheter Dan catheter placed in Apr 2018 Patient initiated on Cefepime and Vancomycin ID and Vascular surgery consult (2) Gastroparesis Current Visit: No Status: Chronic Plan to address problem: GI consult for resuming Gastrostomy tube feedings (3) Transaminitis Current Visit: Yes Status: Acute Plan to address problem: Hep profile ordered (4) DVT prophylaxis Current Visit: Yes Status: Acute Plan to address problem: On Lovenox and GI prophylaxis
[2018-07-19] MEDS: MAXIPIME/NS 2 GM/100 ML 2 GM/100 ML BAG IV SCH ×3 (02:41→18:55)
[2018-07-19] MEDS: ATIVAN PO PRN ×2 (02:46→23:32)
[2018-07-19] MEDS: ROXICODONE PO PRN ×5 (03:26→21:53)
[2018-07-19] MEDS: PERCOCET 5/325 PO PRN ×6 (03:27→21:52)
[2018-07-19] MEDS ORDERED: VANCOMYCIN/NS 1 GM/250 ML 1 GM/250 ML BAG IV ONE (04:00)
--- NOTE | 2018-07-19 09:38 | Gastroenterology Consultation ---
History of Present Illness - Reason for Consult Consult date: 07/19/18 Requesting physician: ELENA ZAMORANO - History of Present Illness This is a 42 yo female with pmh of long standing gastroparesis s/p gastric resection in the past and now dependent on TPN and long history of J-tube feeding, which has been managed with Dr. Shirley in IR. Patient had recent J-tube change in April and plans for exchange to smaller size with Dr. Shirley here for Foster's catheter. Past History Past Medical History: other (Gastroporesis, anxiety) Past Surgical History: hysterectomy, Other (Right Foster catheter, Gastrostomy tube , spine surgery) Social history: , smoking Medications and Allergies Allergies Allergy/AdvReac Type Severity Reaction Status Date / Time ibuprofen AdvReac Swelling Verified 07/18/18 10:16 policosanol [From Lipex] AdvReac Unknown Verified 07/18/18 10:16 IV MORPHINE Allergy Itching Uncoded 09/10/14 11:01 IV CONTRAST AdvReac Vomiting Uncoded 03/13/14 11:09 Home Medications Medication Instructions Recorded Confirmed Last Taken Type LORazepam [Ativan] 2 mg PO PRN PRN 03/13/14 07/18/18 02/11/18 History 2 mg Oxycodone HCl/Acetaminophen 1 tab PO Q4HR PRN 03/13/14 07/18/18 02/14/18 08:00 History [Percocet 10-325 mg] 1 tab cefUROXime [Ceftin] 500 mg PO Q12H 07/18/18 07/18/18 Unknown History Active Meds: Active Medications Enoxaparin Sodium (Lovenox) 40 mg SUB-Q QDAY@2200 LAURA Hydromorphone HCl (Dilaudid) 0.5 mg IV Q3H PRN PRN Reason: Pain , Severe (7-10) Last Admin: 07/19/18 06:47 Dose: 0.5 mg Documented by: Cefepime HCl (Maxipime/Ns 2 Gm/100 Ml) 2 gm in 100 mls @ 200 mls/hr IV Q8H LAURA; Protocol Last Admin: 07/19/18 02:41 Dose: 200 mls/hr Documented by: Vancomycin HCl 750 mg/ Sodium (Chloride) 265 mls @ 166.667 mls/hr IV Q12H LAURA Lorazepam (Ativan) 1 mg PO Q8H PRN PRN Reason: Anxiety Last Admin: 07/19/18 02:46 Dose: 1 mg Documented by: Oxycodone HCl (Roxicodone) 5 mg PO Q4H PRN PRN Reason: Pain, Moderate (4-6) Last Admin: 07/19/18 08:54 Dose: 5 mg Documented by: Oxycodone/Acetaminophen (Percocet 5/325) 1 tab PO Q4H PRN PRN Reason: Pain Last Admin: 07/19/18 08:55 Dose: 1 tab Documented by: Review of Systems - Review of Systems Constitutional: no weight loss, no weight gain Cardiovascular: no chest pain, no edema Gastrointestinal: abdominal pain, nausea, no diarrhea Neurological: no sensory deficit Exam - Constitutional Vital Signs: Temp Pulse Resp BP Pulse Ox 98.1 F 80 16 110/69 97 07/18/18 23:00 07/18/18 23:00 07/19/18 03:27 07/18/18 23:00 07/18/18 23:00 General appearance: no acute distress - EENT Eyes: EOM intact ENT: hearing intact - Neck Neck: normal ROM - Respiratory Respiratory effort: normal - Cardiovascular Rhythm: regular - Gastrointestinal General gastrointestinal: Present: soft, non-distended - Integumentary Integumentary: Present: clear, warm - Neurologic Neurological: alert and oriented x3 - Psychiatric Psychiatric: appropriate mood/affect - Labs CBC & Chem 7: 07/18/18 11:31 07/18/18 11:31 Lab Results: Laboratory Results - last 24 hr 07/18/18 07/18/18 07/18/18 11:31 11:31 11:31 WBC 7.3 RBC 4.12 Hgb 13.3 Hct 39.2 MCV 95 MCH 32 MCHC 34 RDW 13.9 Plt Count 103 L Lymph % (Auto) 16.8 [place] % (Auto) 8.2 H Eos % (Auto) 5.7 H Baso % (Auto) 0.3 Lymph # 1.2 [place] # 0.6 Eos # 0.4 Baso # 0.0 Seg Neutrophils % 69.0 Seg Neutrophils # 5.0 PT INR APTT Sodium 140 Potassium 4.8 Chloride 101.8 Carbon Dioxide 27 Anion Gap 16 BUN 10 Creatinine 0.5 L Estimated GFR > 60 BUN/Creatinine Ratio 20 Glucose 97 Lactic Acid 1.00 Calcium 9.1 Total Bilirubin 0.30 AST 38 ALT 202 H Alkaline Phosphatase 182 H Total Protein 7.2 Albumin 3.6 L Albumin/Globulin Ratio 1.0 Urine Color Urine Turbidity Urine pH Ur Specific [place] Urine Protein Urine Glucose (UA) Urine Ketones Urine Blood Urine Nitrite Urine Bilirubin Urine Urobilinogen Ur Leukocyte Esterase Urine WBC (Auto) Urine RBC (Auto) U Epithel Cells (Auto) Urine Bacteria (Auto) Urine Mucus 07/18/18 07/18/18 11:31 13:56 WBC RBC Hgb Hct MCV MCH MCHC RDW Plt Count Lymph % (Auto) [place] % (Auto) Eos % (Auto) Baso % (Auto) Lymph # [place] # Eos # Baso # Seg Neutrophils % Seg Neutrophils # PT 12.2 INR 0.87 APTT 29.2 Sodium Potassium Chloride Carbon Dioxide Anion Gap BUN Creatinine Estimated GFR BUN/Creatinine Ratio Glucose Lactic Acid Calcium Total Bilirubin AST ALT Alkaline Phosphatase Total Protein Albumin Albumin/Globulin Ratio Urine Color [place] Urine Turbidity Clear Urine pH 6.0 Ur Specific [place] 1.015 Urine Protein <15 mg/dl Urine Glucose (UA) Neg Urine Ketones Neg Urine Blood Neg Urine Nitrite Neg Urine Bilirubin Neg Urine Urobilinogen 2.0 Ur Leukocyte Esterase Neg Urine WBC (Auto) < 1.0 Urine RBC (Auto) 2.0 U Epithel Cells (Auto) 5.0 Urine Bacteria (Auto) 1+ Urine Mucus Few Assessment and Plan This is a 42 yo female with pmh of long standing gastroparesis s/p gastric resection in the past and now dependent on TPN and long history of J-tube feeding, which has been managed with Dr. Shirley in IR. Patient had recent J-tube change in April and plans for exchange to smaller size with Dr. Shirley here for Foster's catheter. - Patient with long standing depedence on J-tube feeding and TPN. - J-tube feeding has been on hold and has been managed with Dr. Shirley with IR. - would defer to the long-term plans as already discussed between the patient and Dr. Shirley. Planned for exchange to smaller size tube before starting tube feeds again. - will sign off. please call with questions.
--- NOTE | 2018-07-19 10:09 | Consultation ---
History of Present Illness - Reason for Consult Consult date: 07/19/18 Line infection Requesting physician: RADHA TURPIN - History of Present Illness This patient is a 42 year old female with a past medical history of severe gastroparesis on TPN via Foster Catheter., that was placed April,. She presents to the ED on 07/18/18 with complaints of fever and chills. for the last 4 days She was evaluated by her PCP Dr. Krishna, and was treated with Ceftin for r espiratory infection. Her symptoms continued despite management of her cold symptoms and she noticed her fever and chills would start y about 30 minutes after starting her TPN through her catheter. She forgot to flush her catheter after use once this week and flushed the next day. The symptoms occurred with this as well. On admission WBC 7.3, Creatinine 0.5, Temperature 98.2, HR 74, U/A was negative for a UTI. and chest xray showed no consolidation. Blood cultures were drawn and are in progress. Review of Systems: General: no feverr, chills or rigors Cutaneous: no rash, pruritus Head: + headaches Eyes: no changes in vision, eye pain, double vision Ears: no ear pain, ear discharge, ringing or hearing loss Mouth & throat: no bleeding gums, no horseness, no dental problems, or swollen glands Neck: no pain, node enlargement/lumps, tyroid enlargement or tenderness Respiratory: no cough, wheezing, sputum, hemoptysis, pleuritic chest pain Cardiovascular: no chest pain, leg edema, cyanosis, MCKEON, orthopnea Musculoskeletal: no decreased joint motion, +joint stiffness Gastrointestinal: no nausea, vomiting, hematemesis, diarrhea, constipation, + J-tube Genitourinary/Reproductive: no frequent urination, no dysuria, hematuria, incontinence Neurogical: no seizures, no headaches, no weakness, no paresthesias, Psychiatric: +anxiety Past History Past Medical History: other (Gastroporesis, anxiety) Past Surgical History: hysterectomy, Other (Right Foster catheter, Gastrostomy tube , spine surgery) Social history: , smoking Medications and Allergies Allergies Allergy/AdvReac Type Severity Reaction Status Date / Time ibuprofen AdvReac Swelling Verified 07/18/18 10:16 policosanol [From Lipex] AdvReac Unknown Verified 07/18/18 10:16 IV MORPHINE Allergy Itching Uncoded 09/10/14 11:01 IV CONTRAST AdvReac Vomiting Uncoded 03/13/14 11:09 Home Medications Medication Instructions Recorded Confirmed Last Taken Type LORazepam [Ativan] 2 mg PO PRN PRN 03/13/14 07/18/18 02/11/18 History 2 mg Oxycodone HCl/Acetaminophen 1 tab PO Q4HR PRN 03/13/14 07/18/18 02/14/18 08:00 History [Percocet 10-325 mg] 1 tab cefUROXime [Ceftin] 500 mg PO Q12H 07/18/18 07/18/18 Unknown History Active Meds: Active Medications Enoxaparin Sodium (Lovenox) 40 mg SUB-Q QDAY@2200 LAURA Hydromorphone HCl (Dilaudid) 0.5 mg IV Q3H PRN PRN Reason: Pain , Severe (7-10) Last Admin: 07/19/18 06:47 Dose: 0.5 mg Documented by: Cefepime HCl (Maxipime/Ns 2 Gm/100 Ml) 2 gm in 100 mls @ 200 mls/hr IV Q8H LAURA; Protocol Last Admin: 07/19/18 02:41 Dose: 200 mls/hr Documented by: Vancomycin HCl 750 mg/ Sodium (Chloride) 265 mls @ 166.667 mls/hr IV Q12H LAURA Lorazepam (Ativan) 1 mg PO Q8H PRN PRN Reason: Anxiety Last Admin: 07/19/18 02:46 Dose: 1 mg Documented by: Oxycodone HCl (Roxicodone) 5 mg PO Q4H PRN PRN Reason: Pain, Moderate (4-6) Last Admin: 07/19/18 08:54 Dose: 5 mg Documented by: Oxycodone/Acetaminophen (Percocet 5/325) 1 tab PO Q4H PRN PRN Reason: Pain Last Admin: 07/19/18 08:55 Dose: 1 tab Documented by: Physical Examination - Physical Exam Narrative exam: Constitutional: Alert, cooperative, anxiety. No acute distress Head, Ears, Nose: Normocephalic, atraumatic. External ears, nose normal Eyes: Conjunctivae/corneas clear. No icterus. No ptosis. Neck: Supple, no meningeal signs Oral: dentition good, no . thrush Cardiovascular: S1, S2 normal. Respiratory: Good air entry, clear to auscultation bilaterally GI: Soft, non-tender; bowel sounds normal. + J-tube Musculoskeletal: No pedal edema, no cyanosis. Skin: No rash or abscess. Dry skin Hem/Lymphatic: No palpable cervical or supraclavicular nodes. No lymphangitis Psych: Mood ok. Affect normal Neurological: Awake, alert, oriented. Lines: Right Foster Catth - Constitutional Vitals: Vital Signs Temp Pulse Resp BP Pulse Ox 98.1 F 80 16 110/69 97 07/18/18 23:00 07/18/18 23:00 07/19/18 03:27 07/18/18 23:00 07/18/18 23:00 Temperature -Last 24 Hours Temperature 98.1 F Temperature 98.2 F Temperature 98.2 F Results - Labs CBC & Chem 7: 07/18/18 11:31 07/18/18 11:31 Labs: Abnormal lab results 07/18/18 07/18/18 Range/Units 11:31 11:31 Plt Count 103 L (140-440) K/mm3 [place] % (Auto) 8.2 H (0.0-7.3) % Eos % (Auto) 5.7 H (0.0-4.3) % Creatinine 0.5 L (0.7-1.2) mg/dL ALT 202 H (7-56) units/L Alkaline Phosphatase 182 H (35-129) units/L Albumin 3.6 L (3.9-5) g/dL Assessment and Plan Imaging 07/18/2018 Chest Xray: No consolidation Cultures: 07/18/2018 Blood: no growth thus far A/P 42-year-old female with past medical history of severe Gastroparesis on TPN via Foster Catheter, that was placed April,. Admitted with: 1. Possible Line Infection: Right Foster catheter for severe gastroparesis on TPN. Reported fever and chills for the last 4 days. Treated with Ceftin from PCP, symptoms persisted. At risk for Candidemia, hence best to wait until Sunday for negative cultures before a new line can be placed. No infectious process thus far. No leukocytosis, afebrile. Blood cultures show no growth thus far. Currently being treated with Cefepime and Vancomycin. Ok to infuse antibiotics through Foster catheter, patient does not have good IV access. 2. Severe Gastroparesis- On TPN via Foster Catheter. Plan: -f/u blood cultures -Continue Cefepime and vancomcin for now -Ok to infuse antibiotics through Foster catheter, does not have good IV access- monitor for fever -At risk for Candidemia, hence best to wait until Sunday for negative cultures before a new line can be placed d/w Dr. Rosario Garcia will be rounding in the Hospital this weekend , . [facility] M: [phone] O:[phone]
--- NOTE | 2018-07-19 13:34 | Progress Note ---
Assessment and Plan We will plan on moving the patient's indwelling Foster and placing another Foster on Sunday with anesthesia. Subjective Date of service: 07/19/18 Interval history: Patient with a history of gastroparesis with most of the G-tube and right IJ Foster catheter. Following use of her Foster catheter this week, the patient began to experience fever and chills and presented to the ER. Her blood cultures are initially negative. The patient is afebrile. On examination, there is no tenderness or erythema. No exudates from the catheter exit site. Objective - Constitutional Vitals: Vital Signs - 12hr 07/19/18 07/19/18 07/19/18 02:25 03:26 03:27 Respiratory 16 16 16 Rate General appearance: Present: no acute distress - EENT Eyes: PERRL ENT: hearing intact - Neck Neck: supple, normal ROM - Respiratory Respiratory effort: normal - Breasts Breasts: deferred Extremities: no ischemia - Gastrointestinal General gastrointestinal: Present: other (G-tube) Rectal Exam: deferred - Genitourinary Female genitourinary: deferred - Psychiatric Psychiatric: appropriate mood/affect, cooperative - Labs CBC & Chem 7: 07/18/18 11:31 07/18/18 11:31 Medications & Allergies - Medications Allergies/Adverse Reactions: Allergies ibuprofen Adverse Reaction (Verified 07/18/18 10:16) Swelling policosanol [From Lipex] Adverse Reaction (Verified 07/18/18 10:16) Unknown IV MORPHINE Allergy (Uncoded 09/10/14 11:01) Itching IV CONTRAST Adverse Reaction (Uncoded 03/13/14 11:09) Vomiting Home Medications: Home Medications Medication Instructions Recorded Confirmed Last Taken Type LORazepam [Ativan] 2 mg PO PRN PRN 03/13/14 07/18/18 02/11/18 History 2 mg Oxycodone HCl/Acetaminophen 1 tab PO Q4HR PRN 03/13/14 07/18/18 02/14/18 08:00 History [Percocet 10-325 mg] 1 tab cefUROXime [Ceftin] 500 mg PO Q12H 07/18/18 07/18/18 Unknown History Active Medications: Generic Name Dose Route Start Last Admin Trade Name Freq PRN Reason Stop Dose Admin Enoxaparin Sodium 40 mg 07/19/18 22:00 Lovenox SUB-Q QDAY@2200 LAURA Hydromorphone HCl 0.5 mg 07/18/18 17:45 07/19/18 10:32 Dilaudid IV 0.5 mg Q3H PRN Administration Pain , Severe (7-10) Cefepime HCl 2 gm in 100 mls @ 200 mls/hr 07/19/18 02:00 07/19/18 10:36 Maxipime/Ns 2 Gm/100 Ml IV 200 mls/hr Q8H LAURA Administration Protocol Vancomycin HCl 750 mg/ Sodium 265 mls @ 166.667 mls/hr 07/19/18 16:00 Chloride IV Q12H LAURA Lorazepam 1 mg 07/19/18 01:33 07/19/18 02:46 Ativan PO 1 mg Q8H PRN Administration Anxiety Oxycodone HCl 5 mg 07/19/18 01:37 07/19/18 13:25 Roxicodone PO 5 mg Q4H PRN Administration Pain, Moderate (4-6) Oxycodone/Acetaminophen 1 tab 07/19/18 01:33 07/19/18 13:24 Percocet 5/325 PO 1 tab Q4H PRN Administration Pain
--- NOTE | 2018-07-19 13:54 | Progress Note ---
Assessment and Plan Assessment and plan: 42 y/o female with severe Gastroparesis on TPN via Dan catheter has been having fever and chills for last 4 days mary after tube feeds.Forgot flushing one day.Patient was treatied with Ceftin by her PCP for URI symptoms. did not improve. Patient has been having chills every time she puts TPN or fluids in her dan line. Past Medical History; gastroparesis, gerd, Dx Line sepsis, due to dan line Gastroparesis Transaminitis Plan Possible Bacteremia sec to Dan catheter Dan catheter placed in Apr 2018 cont abx, ID input appreciated vasc sx consulted to remove line, will need a new line, planned for sunday anti-emetics, ADAT full liquid diet, this was what was ok by her GI doc gastrostomy tube is not to be used, it is being downsized by her GI doc DVT prophylaxis; chemical History Interval history: Review of systems Constitutional: No fevers, no malaise, no joint pains CVS: No chest pain, no orthopnea, no dyspnea on exertion, no pedal edema GI: No abdominal pain, no diarrhea, no vomiting, no constipation Respiratory: No shortness of breath, no wheezing, no coughing Hospitalist Physical - Physical exam Narrative exam: General.: Appears well, no distress, nontoxic HEENT: Moist mucous membranes, extraocular muscles intact, no lymphadenopathy Neck: supple Cardiac: S1-S2 heard Lungs: clear to auscultation bilaterally Abdomen: soft , nontender, nondistended, bowel sounds positive Extremities: no edema clubbing or cyanosis Skin: no rash or lesions Neurologic: no gross focal deficits Psych: calm, and cooperative - Constitutional Vitals: Temp Pulse Resp BP Pulse Ox 98.1 F 80 16 110/69 97 07/18/18 23:00 07/18/18 23:00 07/19/18 03:27 07/18/18 23:00 07/18/18 23:00 General appearance: Present: no acute distress Results - Labs CBC & Chem 7: 07/18/18 11:31 07/18/18 11:31 Labs: Laboratory Last Values WBC 7.3 K/mm3 (4.5-11.0) 07/18/18 11:31 RBC 4.12 M/mm3 (3.65-5.03) 07/18/18 11:31 Hgb 13.3 gm/dl (10.1-14.3) 07/18/18 11:31 Hct 39.2 % (30.3-42.9) 07/18/18 11:31 MCV 95 fl (79-97) 07/18/18 11:31 MCH 32 pg (28-32) 07/18/18 11:31 MCHC 34 % (30-34) 07/18/18 11:31 RDW 13.9 % (13.2-15.2) 07/18/18 11:31 Plt Count 103 K/mm3 (140-440) L 07/18/18 11:31 Lymph % (Auto) 16.8 % (13.4-35.0) 07/18/18 11:31 [place] % (Auto) 8.2 % (0.0-7.3) H 07/18/18 11:31 Eos % (Auto) 5.7 % (0.0-4.3) H 07/18/18 11:31 Baso % (Auto) 0.3 % (0.0-1.8) 07/18/18 11:31 Lymph # 1.2 K/mm3 (1.2-5.4) 07/18/18 11:31 [place] # 0.6 K/mm3 (0.0-0.8) 07/18/18 11:31 Eos # 0.4 K/mm3 (0.0-0.4) 07/18/18 11:31 Baso # 0.0 K/mm3 (0.0-0.1) 07/18/18 11:31 Seg Neutrophils % 69.0 % (40.0-70.0) 07/18/18 11:31 Seg Neutrophils # 5.0 K/mm3 (1.8-7.7) 07/18/18 11:31 PT 12.2 Sec. (12.2-14.9) 07/18/18 11:31 INR 0.87 (0.87-1.13) 07/18/18 11:31 APTT 29.2 Sec. (24.2-36.6) 07/18/18 11:31 Sodium 140 mmol/L (137-145) 07/18/18 11:31 Potassium 4.8 mmol/L (3.6-5.0) 07/18/18 11:31 Chloride 101.8 mmol/L (98-107) 07/18/18 11:31 Carbon Dioxide 27 mmol/L (22-30) 07/18/18 11:31 Anion Gap 16 mmol/L 07/18/18 11:31 BUN 10 mg/dL (7-17) 07/18/18 11:31 Creatinine 0.5 mg/dL (0.7-1.2) L 07/18/18 11:31 Estimated GFR > 60 ml/min 07/18/18 11:31 BUN/Creatinine Ratio 20 % 07/18/18 11:31 Glucose 97 mg/dL (65-100) 07/18/18 11:31 Lactic Acid 1.00 mmol/L (0.7-2.0) 07/18/18 11:31 Calcium 9.1 mg/dL (8.4-10.2) 07/18/18 11:31 Total Bilirubin 0.30 mg/dL (0.1-1.2) 07/18/18 11:31 AST 38 units/L (5-40) 07/18/18 11:31 ALT 202 units/L (7-56) H 07/18/18 11:31 Alkaline Phosphatase 182 units/L (35-129) H 07/18/18 11:31 Total Protein 7.2 g/dL (6.3-8.2) 07/18/18 11:31 Albumin 3.6 g/dL (3.9-5) L 07/18/18 11:31 Albumin/Globulin Ratio 1.0 % 07/18/18 11:31 Urine Color [place] (Yellow) 07/18/18 13:56 Urine Turbidity Clear (Clear) 07/18/18 13:56 Urine pH 6.0 (5.0-7.0) 07/18/18 13:56 Ur Specific [place] 1.015 (1.003-1.030) 07/18/18 13:56 Urine Protein <15 mg/dl mg/dL (Negative) 07/18/18 13:56 Urine Glucose (UA) Neg mg/dL (Negative) 07/18/18 13:56 Urine Ketones Neg mg/dL (Negative) 07/18/18 13:56 Urine Blood Neg (Negative) 07/18/18 13:56 Urine Nitrite Neg (Negative) 07/18/18 13:56 Urine Bilirubin Neg (Negative) 07/18/18 13:56 Urine Urobilinogen 2.0 mg/dL (<2.0) 07/18/18 13:56 Ur Leukocyte Esterase Neg (Negative) 07/18/18 13:56 Urine WBC (Auto) < 1.0 /HPF (0.0-6.0) 07/18/18 13:56 Urine RBC (Auto) 2.0 /HPF (0.0-6.0) 07/18/18 13:56 U Epithel Cells (Auto) 5.0 /HPF (0-13.0) 07/18/18 13:56 Urine Bacteria (Auto) 1+ /HPF (Negative) 07/18/18 13:56 Urine Mucus Few /HPF 07/18/18 13:56 Nutrition/Malnutrition Assess - Dietary Evaluation Nutrition/Malnutrition Findings: Nutrition Notes Start: 07/19/18 10 :55 Freq: Status: Active Protocol: Document 07/19/18 10:55 LM (Rec: 07/19/18 11:26 LM [id number]) Co-Sign 07/19/18 10:55 LP Nutrition Notes Need for Assessment generated from: Low BMI Initial or Follow up Assessment Other Pertinent Diagnosis Gastroparesis Current Diet No diet Labs/Tests Reviewed Pertinent Medications Reviewed Height 5 ft Weight 42.2 kg Usual Body Weight 45.45 kg [place] Body Weight (lbs) 100.0 BMI 18.1 Subjective/Other Information Screen for low BMI. Pt stated that she gets all of her nutriton via TPN since May 2018. Pt had Dan placed April 2018. Pt stated she has gained about 10 lb since starting TPN but recently lost weight in the past 3-4 days. Pt also has J tube. Burn Absent Trauma Absent #1 Nutrition Diagnosis Altered GI function Etiology Gastroparesis As Evidenced by Signs and Symptoms Pt requiring TPN Is patient on ventilator? No Is Patient Ambulatory and/or Out of Bed No REE-([facility]-confined to bed) 1195.920 Kcal/Kg value to use for calculation 40 Approximate Energy Requirements Using 1688 kcal/Kg Calculation Used for Recommendations Kcal/kg Additional Notes Protein: 42- 51 g (1-1.2 g/kg) Fluids: 1 mL/kcal Nutrition Intervention Change Diet Order: TPN once consulted Goal #1 Meet at least 75% of energy and protein needs Anticipated Discharge Needs: TPN Follow-Up By: 07/22/18 Additional Comments F/U for POC
[2018-07-19] MEDS: VANCOMYCIN 750 MG in NACL 0.9% 250ML 250 ML IV SCH (17:17)
[2018-07-19 21:14] LABS: Hepatitis B Surface Antigen Non-Reactive (Negative); Hepatitis C Virus Antibody Non-Reactive (NonReactive)
[2018-07-19] MEDS: LOVENOX SUB-Q SCH (21:53)
[2018-07-20] MEDS: DILAUDID IV PRN ×6 (02:04→21:53)
[2018-07-20] MEDS: MAXIPIME/NS 2 GM/100 ML 2 GM/100 ML BAG IV SCH ×3 (02:04→19:24)
[2018-07-20] MEDS: ROXICODONE PO PRN ×5 (02:20→23:24)
[2018-07-20] MEDS: PERCOCET 5/325 PO PRN ×5 (02:21→23:25)
[2018-07-20 02:35] LABS: Bacteria,Urine 2+ /HPF (Negative); Bilirubin,Urine NEG (Negative); Blood,Urine NEG (Negative); Color,Urine Yellow (Yellow); Mucus,Urine FEW /HPF; Protein,Urine <15 mg/dL mg/dL (Negative); Urobilinogen,Urine < 2.0 mg/dL (<2.0)
[2018-07-20] MEDS: VANCOMYCIN 750 MG in NACL 0.9% 250ML 250 ML IV SCH ×2 (03:56→16:44)
--- NOTE | 2018-07-20 16:33 | Progress Note ---
Assessment and Plan - Patient Problems (1) Abdominal pain Current Visit: Yes Status: Acute Plan to address problem: Carlin pain difficult to tail when evaluating abdomen on physical exam. May be some fluid shifts. We'll obtain KUB to rule out gastric fecal contents. (2) Line sepsis Current Visit: Yes Status: Acute Qualifiers: Encounter type: initial encounter Qualified Code(s): T85.79XA - Infection and inflammatory reaction due to other internal prosthetic devices, implants and grafts, initial encounter; A41.9 - Sepsis, unspecified organism Plan to address problem: Continue treatment with cefepime and vancomycin. Patient's afebrile no leukocytosis no acute pain. To be changed on Sunday. (3) Local infection due to Foster catheter Current Visit: Yes Status: Acute Plan to address problem: Line to be changed on Sunday. (4) Gastroparesis Current Visit: No Status: Chronic History Interval history: Patient 2-year-old presents with severe gastroparesis on TPN chronically had fev er associated with catheter. Suspect infection Foster's catheter. Currently on cefepime and vancomycin here currently hemodynamic was stable. No fever. Patient does complain of abdominal pain which is localized around the PEG site. Scheduled to be downsized. Patient states it has been air underneath the area. This symptom was prior to admission. She's had this for a while. Hospitalist Physical - Constitutional Vitals: Temp Pulse Resp BP Pulse Ox 97.7 F 74 16 124/71 99 07/20/18 11:37 07/20/18 11:37 07/20/18 11:37 07/20/18 11:37 07/20/18 11:37 General appearance: Present: no acute distress - EENT Eyes: Present: PERRL, EOM intact ENT: hearing intact, clear oral mucosa, dentition normal - Neck Neck: Present: supple, normal ROM - Respiratory Respiratory effort: normal Respiratory: bilateral: CTA - Cardiovascular Rhythm: irregularly irregular - Extremities Extremities: no ischemia, pulses intact, pulses symmetrical, No edema, normal temperature, normal color Peripheral Pulses: within normal limits - Abdominal General gastrointestinal: soft, tender, non-distended, hypoactive bowel sounds Localized gastrointestinal: tender: epigastric periumbilical - Integumentary Integumentary: Present: clear, warm, dry - Psychiatric Psychiatric: appropriate mood/affect, intact judgment & insight, cooperative - Neurologic Neurologic: CNII-XII intact, no focal deficits, moves all extremities Results - Labs CBC & Chem 7: 07/18/18 11:31 07/18/18 11:31 Labs: Laboratory Last Values WBC 7.3 K/mm3 (4.5-11.0) 07/18/18 11:31 RBC 4.12 M/mm3 (3.65-5.03) 07/18/18 11:31 Hgb 13.3 gm/dl (10.1-14.3) 07/18/18 11:31 Hct 39.2 % (30.3-42.9) 07/18/18 11:31 MCV 95 fl (79-97) 07/18/18 11:31 MCH 32 pg (28-32) 07/18/18 11:31 MCHC 34 % (30-34) 07/18/18 11:31 RDW 13.9 % (13.2-15.2) 07/18/18 11:31 Plt Count 103 K/mm3 (140-440) L 07/18/18 11:31 Lymph % (Auto) 16.8 % (13.4-35.0) 07/18/18 11:31 [place] % (Auto) 8.2 % (0.0-7.3) H 07/18/18 11:31 Eos % (Auto) 5.7 % (0.0-4.3) H 07/18/18 11:31 Baso % (Auto) 0.3 % (0.0-1.8) 07/18/18 11:31 Lymph # 1.2 K/mm3 (1.2-5.4) 07/18/18 11:31 [place] # 0.6 K/mm3 (0.0-0.8) 07/18/18 11:31 Eos # 0.4 K/mm3 (0.0-0.4) 07/18/18 11:31 Baso # 0.0 K/mm3 (0.0-0.1) 07/18/18 11:31 Seg Neutrophils % 69.0 % (40.0-70.0) 07/18/18 11:31 Seg Neutrophils # 5.0 K/mm3 (1.8-7.7) 07/18/18 11:31 PT 12.2 Sec. (12.2-14.9) 07/18/18 11:31 INR 0.87 (0.87-1.13) 07/18/18 11:31 APTT 29.2 Sec. (24.2-36.6) 07/18/18 11:31 Sodium 140 mmol/L (137-145) 07/18/18 11:31 Potassium 4.8 mmol/L (3.6-5.0) 07/18/18 11:31 Chloride 101.8 mmol/L (98-107) 07/18/18 11:31 Carbon Dioxide 27 mmol/L (22-30) 07/18/18 11:31 Anion Gap 16 mmol/L 07/18/18 11:31 BUN 10 mg/dL (7-17) 07/18/18 11:31 Creatinine 0.5 mg/dL (0.7-1.2) L 07/18/18 11:31 Estimated GFR > 60 ml/min 07/18/18 11:31 BUN/Creatinine Ratio 20 % 07/18/18 11:31 Glucose 97 mg/dL (65-100) 07/18/18 11:31 Lactic Acid 1.00 mmol/L (0.7-2.0) 07/18/18 11:31 Calcium 9.1 mg/dL (8.4-10.2) 07/18/18 11:31 Total Bilirubin 0.30 mg/dL (0.1-1.2) 07/18/18 11:31 AST 38 units/L (5-40) 07/18/18 11:31 ALT 202 units/L (7-56) H 07/18/18 11:31 Alkaline Phosphatase 182 units/L (35-129) H 07/18/18 11:31 Total Protein 7.2 g/dL (6.3-8.2) 07/18/18 11:31 Albumin 3.6 g/dL (3.9-5) L 07/18/18 11:31 Albumin/Globulin Ratio 1.0 % 07/18/18 11:31 Urine Color Yellow (Yellow) 07/18/18 14:29 Urine Turbidity Clear (Clear) 07/18/18 14:29 Urine pH 6.0 (5.0-7.0) 07/18/18 14:29 Ur Specific [place] 1.010 (1.003-1.030) 07/18/18 14:29 Urine Protein <15 mg/dl mg/dL (Negative) 07/18/18 14:29 Urine Glucose (UA) Neg mg/dL (Negative) 07/18/18 14:29 Urine Ketones Neg mg/dL (Negative) 07/18/18 14:29 Urine Blood Neg (Negative) 07/18/18 14:29 Urine Nitrite Neg (Negative) 07/18/18 14:29 Urine Bilirubin Neg (Negative) 07/18/18 14:29 Urine Urobilinogen < 2.0 mg/dL (<2.0) 07/18/18 14:29 Ur Leukocyte Esterase Neg (Negative) 07/18/18 14:29 Urine WBC (Auto) 1.0 /HPF (0.0-6.0) 07/18/18 14:29 Urine RBC (Auto) 1.0 /HPF (0.0-6.0) 07/18/18 14:29 U Epithel Cells (Auto) 2.0 /HPF (0-13.0) 07/18/18 14:29 Urine Bacteria (Auto) 2+ /HPF (Negative) 07/18/18 14:29 Urine Mucus Few /HPF 07/18/18 14:29 Hepatitis A IgM Ab Non-reactive (NonReactive) 07/19/18 20:04 Hep Bs Antigen Non-reactive (Negative) 07/19/18 20:04 Hep B Core IgM Ab Non-reactive (NonReactive) 07/19/18 20:04 Hepatitis C Antibody Non-reactive (NonReactive) 07/19/18 20:04 Nutrition/Malnutrition Assess - Dietary Evaluation Nutrition/Malnutrition Findings: Nutrition Notes Start: 07/19/18 10:55 Freq: Status: Active Protocol: Document 07/19/18 10:55 LM (Rec: 07/19/18 11:26 LM [id number]) Co-Sign 07/19/18 10:55 LP Nutrition Notes Need for Assessment generated from: Low BMI Initial or Follow up Assessment Other Pertinent Diagnosis Gastroparesis Current Diet No diet Labs/Tests Reviewed Pertinent Medications Reviewed Height 5 ft Weight 42.2 kg Usual Body Weight 45.45 kg [place] Body Weight (lbs) 100.0 BMI 18.1 Subjective/Other Information Screen for low BMI. Pt stated that she gets all of her nutriton via TPN since May 2018. Pt had Foster placed April 2018. Pt stated she has gained about 10 lb since starting TPN but recently lost weight in the past 3-4 days. Pt also has J tube. Burn Absent Trauma Absent #1 Nutrition Diagnosis Altered GI function Etiology Gastroparesis As Evidenced by Signs and Symptoms Pt requiring TPN Is patient on ventilator? No Is Patient Ambulatory and/or Out of Bed No REE-([facility]-confined to bed) 1195.920 Kcal/Kg value to use for calculation 40 Approximate Energy Requirements Using 1688 kcal/Kg Calculation Used for Recommendations Kcal/kg Additional Notes Protein: 42- 51 g (1-1.2 g/kg) Fluids: 1 mL/kcal Nutrition Intervention Change Diet Order: TPN once consulted Goal #1 Meet at least 75% of energy and protein needs Anticipated Discharge Needs: TPN Follow-Up By: 07/22/18 Additional Comments F/U for POC
--- NOTE | 2018-07-20 17:31 | XRay Report ---
FINAL REPORT EXAM: XR ABDOMEN 1V AP HISTORY: abdominal pain COMPARISON: None available. FINDINGS: AP view of the abdomen obtained. Gastrojejunostomy tube is in place. Gas is scattered within nondilat ed bowel. Radiopaque catheter projects over the right upper abdomen and there are surgical clips in t he right upper abdomen. IMPRESSION: Nonobstructive bowel gas pattern.
[2018-07-20] MEDS: LOVENOX SUB-Q SCH (21:53)
[2018-07-21] MEDS: ATIVAN PO PRN (01:09)
[2018-07-21] MEDS: MAXIPIME/NS 2 GM/100 ML 2 GM/100 ML BAG IV SCH ×3 (01:09→17:41)
[2018-07-21] MEDS: DILAUDID IV PRN ×5 (01:57→23:04)
[2018-07-21] MEDS: VANCOMYCIN 750 MG in NACL 0.9% 250ML 250 ML IV SCH ×2 (04:55→17:41)
[2018-07-21] MEDS: ROXICODONE PO PRN ×3 (04:55→19:25)
[2018-07-21] MEDS: PERCOCET 5/325 PO PRN ×3 (04:56→19:25)
--- NOTE | 2018-07-21 07:12 | Progress Note ---
Assessment and Plan Assessment and plan: Patient 42-year-old presents with severe gastroparesis on TPN chronically had fever associated with catheter. as been having fever and chills for last 4 days mary after tube feeds.Forgot flushing one day.Patient was treatied with Ceftin by her PCP for URI symptoms. did not improve. Patient has been having chills every time she puts TPN or fluids in her foster line. Suspect infection Foster's catheter. Currently on cefepime and vancomycin here currently hemodynamic was stable. No fever. Patient does complain of abdominal pain which is localized around the PEG site. Scheduled to be downsized. Patient states it has been air underneath the area. This symptom was prior to admission. She's had this for a while. - Patient Problems (1) Abdominal pain/Peritoneal irration Current Visit: Yes Status: Acute Plan to address problem: Abdominal pain difficult to tell when evaluating abdomen on physical exam. May be some fluid shifts. KUB shows non obstructive gas pattern Will obtain CT abdomen and pelvis, non contrast as patient is alergic to contrast Continue pain control will increase dialudid (2) Line sepsis Current Visit: Yes Status: Acute Qualifiers: Encounter type: initial encounter Qualified Code(s): T85.79XA - Infection and inflammatory reaction due to other internal prosthetic devices, implants and grafts, initial encounter; A41.9 - Sepsis, unspecified organism Plan to address problem: Continue treatment with cefepime and vancomycin. Patient's afebrile no leukocytosis no acute pain. To be changed on Sunday. (3) Local infection due to Foster catheter Current Visit: Yes Status: Acute Plan to address problem: Line to be changed on Sunday. (4) Gastroparesis Current Visit: No Status: Chronic History Interval history: Patient seen and examined, continues to complain of abdominal pain out of proportion from prior chronic pain. awaiting foster exchange. Hospitalist Physical - Physical exam Narrative exam: General appearance: Present: no acute distress - EENT Eyes: Present: PERRL, EOM intact ENT: hearing intact, clear oral mucosa, dentition normal - Neck Neck: Present: supple, normal ROM - Respiratory Respiratory effort: normal Respiratory: bilateral: CTA - Cardiovascular Rhythm: irregularly irregular - Extremities Extremities: no ischemia, pulses intact, pulses symmetrical, No edema, normal temperature, normal color Peripheral Pulses: within normal limits - Abdominal General gastrointestinal: soft, tender, non-distended, hypoactive bowel sounds Localized gastrointestinal: tender: epigastric periumbilical - Integumentary Integumentary: Present: clear, warm, dry - Psychiatric Psychiatric: appropriate mood/affect, intact judgment & insight, cooperative - Neurologic Neurologic: CNII-XII intact, no focal deficits, moves all extremities - Constitutional Vitals: Temp Pulse Resp BP Pulse Ox 97.9 F 65 18 102/68 95 07/21/18 05:26 07/21/18 05:26 07/21/18 05:56 07/21/18 05:26 07/21/18 05:26 General appearance: Present: no acute distress Results - Labs CBC & Chem 7: 07/18/18 11:31 07/18/18 11:31 Labs: Laboratory Last Values WBC 7.3 K/mm3 (4.5-11.0) 07/18/18 11:31 RBC 4.12 M/mm3 (3.65-5.03) 07/18/18 11:31 Hgb 13.3 gm/dl (10.1-14.3) 07/18/18 11:31 Hct 39.2 % (30.3-42.9) 07/18/18 11:31 MCV 95 fl (79-97) 07/18/18 11:31 MCH 32 pg (28-32) 07/18/18 11:31 MCHC 34 % (30-34) 07/18/18 11:31 RDW 13.9 % (13.2-15.2) 07/18/18 11:31 Plt Count 103 K/mm3 (140-440) L 07/18/18 11:31 Lymph % (Auto) 16.8 % (13.4-35.0) 07/18/18 11:31 [place] % (Auto) 8.2 % (0.0-7.3) H 07/18/18 11:31 Eos % (Auto) 5.7 % (0.0-4.3) H 07/18/18 11:31 Baso % (Auto) 0.3 % (0.0-1.8) 07/18/18 11:31 Lymph # 1.2 K/mm3 (1.2-5.4) 07/18/18 11:31 [place] # 0.6 K/mm3 (0.0-0.8) 07/18/18 11:31 Eos # 0.4 K/mm3 (0.0-0.4) 07/18/18 11:31 Baso # 0.0 K/mm3 (0.0-0.1) 07/18/18 11:31 Seg Neutrophils % 69.0 % (40.0-70.0) 07/18/18 11:31 Seg Neutrophils # 5.0 K/mm3 (1.8-7.7) 07/18/18 11:31 PT 12.2 Sec. (12.2-14.9) 07/18/18 11:31 INR 0.87 (0.87-1.13) 07/18/18 11:31 APTT 29.2 Sec. (24.2-36.6) 07/18/18 11:31 Sodium 140 mmol/L (137-145) 07/18/18 11:31 Potassium 4.8 mmol/L (3.6-5.0) 07/18/18 11:31 Chloride 101.8 mmol/L (98-107) 07/18/18 11:31 Carbon Dioxide 27 mmol/L (22-30) 07/18/18 11:31 Anion Gap 16 mmol/L 07/18/18 11:31 BUN 10 mg/dL (7-17) 07/18/18 11:31 Creatinine 0.5 mg/dL (0.7-1.2) L 07/18/18 11:31 Estimated GFR > 60 ml/min 07/18/18 11:31 BUN/Creatinine Ratio 20 % 07/18/18 11:31 Glucose 97 mg/dL (65-100) 07/18/18 11:31 Lactic Acid 1.00 mmol/L (0.7-2.0) 07/18/18 11:31 Calcium 9.1 mg/dL (8.4-10.2) 07/18/18 11:31 Total Bilirubin 0.30 mg/dL (0.1-1.2) 07/18/18 11:31 AST 38 units/L (5-40) 07/18/18 11:31 ALT 202 units/L (7-56) H 07/18/18 11:31 Alkaline Phosphatase 182 units/L (35-129) H 07/18/18 11:31 Total Protein 7.2 g/dL (6.3-8.2) 07/18/18 11:31 Albumin 3.6 g/dL (3.9-5) L 07/18/18 11:31 Albumin/Globulin Ratio 1.0 % 07/18/18 11:31 Urine Color Yellow (Yellow) 07/18/18 14:29 Urine Turbidity Clear (Clear) 07/18/18 14:29 Urine pH 6.0 (5.0-7.0) 07/18/18 14:29 Ur Specific [place] 1.010 (1.003-1.030) 07/18/18 14:29 Urine Protein <15 mg/dl mg/dL (Negative) 07/18/18 14:29 Urine Glucose (UA) Neg mg/dL (Negative) 07/18/18 14:29 Urine Ketones Neg mg/dL (Negative) 07/18/18 14:29 Urine Blood Neg (Negative) 07/18/18 14:29 Urine Nitrite Neg (Negative) 07/18/18 14:29 Urine Bilirubin Neg (Negative) 07/18/18 14:29 Urine Urobilinogen < 2.0 mg/dL (<2.0) 07/18/18 14:29 Ur Leukocyte Esterase Neg (Negative) 07/18/18 14:29 Urine WBC (Auto) 1.0 /HPF (0.0-6.0) 07/18/18 14:29 Urine RBC (Auto) 1.0 /HPF (0.0-6.0) 07/18/18 14:29 U Epithel Cells (Auto) 2.0 /HPF (0-13.0) 07/18/18 14:29 Urine Bacteria (Auto) 2+ /HPF (Negative) 07/18/18 14:29 Urine Mucus Few /HPF 07/18/18 14:29 Hepatitis A IgM Ab Non-reactive (NonReactive) 07/19/18 20:04 Hep Bs Antigen Non-reactive (Negative) 07/19/18 20:04 Hep B Core IgM Ab Non-reactive (NonReactive) 07/19/18 20:04 Hepatitis C Antibody Non-reactive (NonReactive) 07/19/18 20:04 Nutrition/Malnutrition Assess - Dietary Evaluation Nutrition/Malnutrition Findings: Nutrition Notes Start: 07/19/18 10:55 Freq: Status: Active Protocol: Document 07/19/18 10:55 LM (Rec: 07/19/18 11:26 LM [id number]) Co-Sign 07/19/18 10:55 LP Nutrition Notes Need for Assessment generated from: Low BMI Initial or Follow up Assessment Other Pertinent Diagnosis Gastroparesis Current Diet No diet Labs/Tests Reviewed Pertinent Medications Reviewed Height 5 ft Weight 42.2 kg Usual Body Weight 45.45 kg [place] Body Weight (lbs) 100.0 BMI 18.1 Subjective/Other Information Screen for low BMI. Pt stated that she gets all of her nutriton via TPN since May 2018. Pt had Foster placed April 2018. Pt stated she has gained about 10 lb since starting TPN but recently lost weight in the past 3-4 days. Pt also has J tube. Burn Absent Trauma Absent #1 Nutrition Diagnosis Altered GI function Etiology Gastroparesis As Evidenced by Signs and Symptoms Pt requiring TPN Is patient on ventilator? No Is Patient Ambulatory and/or Out of Bed No REE-([facility]-confined to bed) 1195.920 Kcal/Kg value to use for calculation 40 Approximate Energy Requirements Using 1688 kcal/Kg Calculation Used for Recommendations Kcal/kg Additional Notes Protein: 42- 51 g (1-1.2 g/kg) Fluids: 1 mL/kcal Nutrition Intervention Change Diet Order: TPN once consulted Goal #1 Meet at least 75% of energy and protein needs Anticipated Discharge Needs: TPN Follow-Up By: 07/22/18 Additional Comments F/U for POC
[2018-07-21] MEDS ORDERED: PERCOCET 5/325 PO PRN (07:40)
--- NOTE | 2018-07-21 11:19 | Event Note ---
Date: 07/21/18 Courtesy visit - Pt doing ok. Scheduled for line change tomorrow. Pt did not need anything at this time. Please call with any questions.
--- NOTE | 2018-07-21 13:52 | Progress Note ---
Assessment and Plan Imaging 07/18/2018 Chest Xray: No consolidation Cultures: 07/18/2018 Blood: no growth thus far A/P 42-year-old female with history of severe Gastroparesis on TPN via Foster Catheter, that was placed April,. Admitted with: 1. Subjective fever and chills during Foster infusion: ?Possible Line Infection; Reported fever and chills for the last 4 days. Treated with Ceftin from PCP, symptoms persisted. At risk for Candidemia. No infectious process thus far. No leukocytosis, afebrile. Blood cultures show no growth thus far. 2. Severe Gastroparesis- On TPN via Foster Catheter. 3. Severe abdomen pain: of unclear etiology, patient with gastroparesis and c/o severe excruciating abdominal pain totally out of her baseline pain pattern, no responding to pain meds, no evidence of sepsis. UA neg. Noted mildly elevated LFTs. ? cholecystitis ? ischemia Plan: -agree with abdominal CT -check lipase, lactate -f/u blood cultures -Continue Cefepime and vancomcin for now -Ok to infuse antibiotics through Foster catheter, does not have good IV access- monitor for fever -At risk for Candidemia, hence best to wait until Sunday for negative cultures before a new line can be placed Riana Garcia MD [facility] C: [phone] O: [phone] F: [phone] Subjective Date of service: 07/21/18 Principal diagnosis: line infection Interval history: Patient reports severe abdominal pain getting worse no improving with pain meds, no fever, no chills. ROS: +abdominal pain, rest 10 point MELCHOR neg Objective - Exam Narrative Exam: Constitutional: Alert, cooperative, anxiety. No acute distress Head, Ears, Nose: Normocephalic, atraumatic. External ears, nose normal Eyes: Conjunctivae/corneas clear. No icterus. No ptosis. Neck: Supple, no meningeal signs Oral: dentition good, no . thrush Cardiovascular: S1, S2 normal. Respiratory: Good air entry, clear to auscultation bilaterally GI: Soft, non-tender; bowel sounds normal. + J-tube Musculoskeletal: No pedal edema, no cyanosis. Skin: No rash or abscess. Dry skin Hem/Lymphatic: No palpable cervical or supraclavicular nodes. No lymphangitis Psych: Mood ok. Affect normal Neurological: Awake, alert, oriented. Lines: Right Foster Catth - Constitutional Vitals: Vital Signs Temp Pulse Resp BP Pulse Ox 98.2 F 79 18 123/86 98 07/21/18 11:44 07/21/18 11:44 07/21/18 11:44 07/21/18 11:44 07/21/18 11:44 Temperature -Last 24 Hours Temperature 98.2 F Temperature 97.9 F Temperature 97.8 F Temperature 97.8 F - Labs CBC & Chem 7: 07/18/18 11:31 07/18/18 11:31
[2018-07-21] MEDS ORDERED: NACL 0.45% 1000 ML 1,000 ML IV SCH (22:00)
[2018-07-21] MEDS: LOVENOX SUB-Q SCH (23:04)
[2018-07-22] MEDS: MAXIPIME/NS 2 GM/100 ML 2 GM/100 ML BAG IV SCH ×2 (01:02→10:16)
[2018-07-22] MEDS: VANCOMYCIN 750 MG in NACL 0.9% 250ML 250 ML IV SCH (03:42)
[2018-07-22] MEDS: DILAUDID IV PRN (04:06)
[2018-07-22 07:03] VITALS: BP 113/74
--- NOTE | 2018-07-22 07:14 | Anesthesia Day of Surgery ---
Anesthesia Day of Surgery - Day of Surgery Patient Examined: Yes Patient H&P Reviewed: Yes Patient is NPO: Yes
--- NOTE | 2018-07-22 07:14 | Anesthesia Consultation ---
Anesthesia Consult and Med Hx Date of service: 07/22/18 - Airway Anesthetic Teeth Evaluation: Good ROM Head & Neck: Adequate Mental/Hyoid Distance: Adequate Mallampati Class: Class II Intubation Access Assessment: Probably Good - Pulmonary Exam CTA: Yes - Cardiac Exam Cardiac Exam: RRR - Pre-Operative Health Status ASA Pre-Surgery Classification: ASA3 - Pulmonary Hx Smoking: Yes (1 ppd) Hx Pneumonia: No - Central Nervous System Hx Psychiatric Problems: No - Hematic Hx Anemia: Yes - Other Systems Hx Cancer: No - Additional Comments Anesthesia Medical History Comments: Severe gastroparesis of unknown etiology.
[2018-07-22] MEDS ORDERED: HEPARIN 10,000 UNITS/10 ML ONE (07:32)
[2018-07-22] MEDS ORDERED: HEPARIN/NS 5000 UNIT/500ML(CATH LAB) 1,000 ML IR ONE (07:32)
[2018-07-22] MEDS ORDERED: DILAUDID ONE (07:40)
[2018-07-22] MEDS ORDERED: DIPRIVAN 10 MG/ML IV ONE ×2 (07:40→07:41)
[2018-07-22] MEDS ORDERED: VERSED ONE (07:40)
[2018-07-22] MEDS: XYLOCAINE 2% INFILTRATI ONE ×2 (08:07→08:16)
--- NOTE | 2018-07-22 08:46 | Operative Report ---
Operative Report Operative Report: Exam: Exam: Right IJ tunneled Foster catheter removal, right IJ tunneled Foster catheter placement Clinical indication: Gastroparesis, Foster for TPN Date: 07/22/2018 Procedure: Following an explanation of the risks, benefits and alternatives; written informed consent was obtained. The patient was brought to the graphic suite and placed in supine position on the examination table. Following the induction of anesthesia, ultrasound evaluation of the right IJ demonstrated a patent right internal jugular vein with an indwelling Foster catheter. The patient's right chest wall and neck were prepped and draped in the usual sterile fashion. 1% lidocaine was used for anesthesia. Removal The catheter cuff of the indwelling Foster was freed using a combination of sharp and blunt dissection. Fluoroscopic images were obtained pre-and post- removal. The catheter was removed intact. Post removal imaging demonstrated no retained fragments. Hemostasis was achieved using medical compression. Placement Under ultrasound guidance, the right internal jugular vein was cannulated with a 7 cm 18-gauge needle. A 0.035 guidewire was advanced under fluoroscopy into the right hepatic vein to document intravenous positioning. The needle was removed. An appropriate catheter exit site was chosen along the lateral right chest wall. 1% lidocaine was used for anesthesia at the catheter exit site and along the tunnel tract. A new single lumen Foster catheter was then tunneled antegrade from the catheter exit site to the being on any site. Peel-away sheath was placed over the guidewire and advanced centrally under fluoroscopy. Following standard guidewire measurements, the guidewire was remov ed and a Foster cut to length and inserted through the peel-away sheath. The Foster was placed with the tip in the proximal right atrium. The peel-away sheath was removed. The Foster flushed and aspirated easily and was then locked with appropriate volumes of heparin. The Foster was approximated at the catheter exit site using 2-0 Ethilon suture. 4-0 Vicryl suture was used to approximate the venotomy site. Dermabond was then applied. Sterile dressings were then applied. The patient tolerated the procedure well. There were no immediate post procedure complications. Sedation was administered under the guidance of anesthesia services. Continuous cardiopulmonary monitoring was utilized. Impression: 1) Right IJ tunneled Foster catheter removal. 2) New right IJ tunneled Foster catheter placement via a different catheter exit site and different venotomy site.
--- NOTE | 2018-07-22 09:27 | Progress Note ---
Assessment and Plan Imaging 07/18/2018 Chest Xray: No consolidation Cultures: 07/18/2018 Blood: no growth thus far A/P 42-year-old female with history of severe Gastroparesis on TPN via Foster Catheter, that was placed April,. Admitted with: 1. Subjective fever and chills during Foster infusion: ?Possible Line Infection; Reported fever and chills for the last 4 days. Treated with Ceftin from PCP, symptoms persisted. At risk for Candidemia. No infectious process thus far. No leukocytosis, afebrile. Blood cultures show no growth thus far.Foster catheter removal today. New Foster Catheter placement. 2. Severe Gastroparesis- On TPN via Foster Catheter. 3. Severe abdomen pain: of unclear etiology, patient with gastroparesis and c/o severe excruciating abdominal pain totally out of her baseline pain pattern, no responding to pain meds, no evidence of sepsis. UA neg. Noted mildly elevated LFTs. ? cholecystitis ? ischemia Plan: -f/u abdominal CT -Continue Cefepime and vancomcin for now [facility] M: [phone] O:[phone] Subjective Date of service: 07/22/18 Principal diagnosis: line infection Objective - Constitutional Vitals: Vital Signs Temp Pulse Resp BP Pulse Ox 98.1 F 68 16 113/74 98 07/22/18 07:02 07/22/18 07:02 07/22/18 07:02 07/22/18 07:02 07/22/18 07:02 Temperature -Last 24 Hours Temperature 98.1 F Temperature 97.8 F Temperature 98.0 F Temperature 97.7 F Temperature 98.2 F - Labs CBC & Chem 7: 07/18/18 11:31 07/18/18 11:31
[2018-07-22] MEDS: PERCOCET 5/325 PO PRN (09:29)
[2018-07-22] MEDS: ROXICODONE PO PRN (09:29)
--- NOTE | 2018-07-22 09:30 | Event Note ---
Date: 07/22/18 Patient status post Foster replacement. From a vascular standpoint, the patient may be discharged home at any time.
--- NOTE | 2018-07-22 10:04 | Progress Note ---
Assessment and Plan Assessment and plan: Patient 42-year-old presents with severe gastroparesis on TPN chronically had fever associated with catheter. as been having fever and chills for last 4 days mary after tube feeds.Forgot flushing one day.Patient was treatied with Ceftin by her PCP for URI symptoms. did not improve. Patient has been having chills every time she puts TPN or fluids in her foster line. Suspect infection Foster's catheter. Currently on cefepime and vancomycin here currently hemodynamic was stable. No fever. Patient does complain of abdominal pain which is localized around the PEG site. Scheduled to be downsized. Patient states it has been air underneath the area. This symptom was prior to admission. She's had this for a while. - Patient Problems (1) Abdominal pain/Peritoneal irration Current Visit: Yes Status: Acute Plan to address problem: Abdominal pain difficult to tell when evaluating abdomen on physical exam. May be some fluid shifts. KUB shows non obstructive gas pattern Will obtain CT abdomen and pelvis, non contrast as patient is allergic to contrast Continue pain control will increase dialudid (2) Line sepsis Current Visit: Yes Status: Acute Qualifiers: Encounter type: initial encounter Qualified Code(s): T85.79XA - Infection and inflammatory reaction due to other internal prosthetic devices, implants and grafts, initial encounter; A41.9 - Sepsis, unspecified organism Plan to address problem: Continue treatment with cefepime and vancomycin. Patient's afebrile no leukocytosis no acute pain. (3) Local infection due to Foster catheter Current Visit: Yes Status: Acute Plan to address problem: Line to be changed on Sunday. (4) Gastroparesis- severe Current Visit: No Status: Chronic Hospitalist Physical - Physical exam Narrative exam: General appearance: Present: no acute distress - EENT Eyes: Present: PERRL, EOM intact ENT: hearing intact, clear oral mucosa, dentition normal - Neck Neck: Present: supple, normal ROM - Respiratory Respiratory effort: normal Respiratory: bilateral: CTA - Cardiovascular Rhythm: irregularly irregular - Extremities Extremities: no ischemia, pulses intact, pulses symmetrical, No edema, normal temperature, normal color Peripheral Pulses: within normal limits - Abdominal General gastrointestinal: soft, tender, non-distended, hypoactive bowel sounds Localized gastrointestinal: tender: epigastric periumbilical - Integumentary Integumentary: Present: clear, warm, dry - Psychiatric Psychiatric: appropriate mood/affect, intact judgment & insight, cooperative - Neurologic Neurologic: CNII-XII intact, no focal deficits, moves all extremities - Constitutional Vitals: Temp Pulse Resp BP Pulse Ox 98.1 F 68 16 113/74 98 07/22/18 07:02 07/22/18 07:02 07/22/18 07:02 07/22/18 07:02 07/22/18 07:02 General appearance: Present: no acute distress Results - Labs CBC & Chem 7: 07/18/18 11:31 07/18/18 11:31 Labs: Laboratory Last Values WBC 7.3 K/mm3 (4.5-11.0) 07/18/18 11:31 RBC 4.12 M/mm3 (3.65-5.03) 07/18/18 11:31 Hgb 13.3 gm/dl (10.1-14.3) 07/18/18 11:31 Hct 39.2 % (30.3-42.9) 07/18/18 11:31 MCV 95 fl (79-97) 07/18/18 11:31 MCH 32 pg (28-32) 07/18/18 11:31 MCHC 34 % (30-34) 07/18/18 11:31 RDW 13.9 % (13.2-15.2) 07/18/18 11:31 Plt Count 103 K/mm3 (140-440) L 07/18/18 11:31 Lymph % (Auto) 16.8 % (13.4-35.0) 07/18/18 11:31 [place] % (Auto) 8.2 % (0.0-7.3) H 07/18/18 11:31 Eos % (Auto) 5.7 % (0.0-4.3) H 07/18/18 11:31 Baso % (Auto) 0.3 % (0.0-1.8) 07/18/18 11:31 Lymph # 1.2 K/mm3 (1.2-5.4) 07/18/18 11:31 Chester # 0.6 K/mm3 (0.0-0.8) 07/18/18 11:31 Eos # 0.4 K/mm3 (0.0-0.4) 07/18/18 11:31 Baso # 0.0 K/mm3 (0.0-0.1) 07/18/18 11:31 Seg Neutrophils % 69.0 % (40.0-70.0) 07/18/18 11:31 Seg Neutrophils # 5.0 K/mm3 (1.8-7.7) 07/18/18 11:31 PT 12.2 Sec. (12.2-14.9) 07/18/18 11:31 INR 0.87 (0.87-1.13) 07/18/18 11:31 APTT 29.2 Sec. (24.2-36.6) 07/18/18 11:31 Sodium 140 mmol/L (137-145) 07/18/18 11:31 Potassium 4.8 mmol/L (3.6-5.0) 07/18/18 11:31 Chloride 101.8 mmol/L (98-107) 07/18/18 11:31 Carbon Dioxide 27 mmol/L (22-30) 07/18/18 11:31 Anion Gap 16 mmol/L 07/18/18 11:31 BUN 10 mg/dL (7-17) 07/18/18 11:31 Creatinine 0.5 mg/dL (0.7-1.2) L 07/18/18 11:31 Estimated GFR > 60 ml/min 07/18/18 11:31 BUN/Creatinine Ratio 20 % 07/18/18 11:31 Glucose 97 mg/dL (65-100) 07/18/18 11:31 Lactic Acid 1.00 mmol/L (0.7-2.0) 07/21/18 16:30 Calcium 9.1 mg/dL (8.4-10.2) 07/18/18 11:31 Total Bilirubin 0.30 mg/dL (0.1-1.2) 07/18/18 11:31 AST 38 units/L (5-40) 07/18/18 11:31 ALT 202 units/L (7-56) H 07/18/18 11:31 Alkaline Phosphatase 182 units/L (35-129) H 07/18/18 11:31 Total Protein 7.2 g/dL (6.3-8.2) 07/18/18 11:31 Albumin 3.6 g/dL (3.9-5) L 07/18/18 11:31 Albumin/Globulin Ratio 1.0 % 07/18/18 11:31 Lipase 30 units/L (13-60) 07/21/18 16:30 Urine Color Yellow (Yellow) 07/18/18 14:29 Urine Turbidity Clear (Clear) 07/18/18 14:29 Urine pH 6.0 (5.0-7.0) 07/18/18 14:29 Ur Specific [place] 1.010 (1.003-1.030) 07/18/18 14:29 Urine Protein <15 mg/dl mg/dL (Negative) 07/18/18 14:29 Urine Glucose (UA) Neg mg/dL (Negative) 07/18/18 14:29 Urine Ketones Neg mg/dL (Negative) 07/18/18 14:29 Urine Blood Neg (Negative) 07/18/18 14:29 Urine Nitrite Neg (Negative) 07/18/18 14:29 Urine Bilirubin Neg (Negative) 07/18/18 14:29 Urine Urobilinogen < 2.0 mg/dL (<2.0) 07/18/18 14:29 Ur Leukocyte Esterase Neg (Negative) 07/18/18 14:29 Urine WBC (Auto) 1.0 /HPF (0.0-6.0) 07/18/18 14:29 Urine RBC (Auto) 1.0 /HPF (0.0-6.0) 07/18/18 14:29 U Epithel Cells (Auto) 2.0 /HPF (0-13.0) 07/18/18 14:29 Urine Bacteria (Auto) 2+ /HPF (Negative) 07/18/18 14:29 Urine Mucus Few /HPF 07/18/18 14:29 Vancomycin Trough 8.1 ug/mL (5.0-20.0) 07/21/18 16:30 Hepatitis A IgM Ab Non-reactive (NonReactive) 07/19/18 20:04 Hep Bs Antigen Non-reactive (Negative) 07/19/18 20:04 Hep B Core IgM Ab Non-reactive (NonReactive) 07/19/18 20:04 Hepatitis C Antibody Non-reactive (NonReactive) 07/19/18 20:04 Nutrition/Malnutrition Assess - Dietary Evaluation Nutrition/Malnutrition Findings: Nutrition Notes Start: 07/19/18 10:55 Freq: Status: Active Protocol: Document 07/19/18 10:55 LM (Rec: 07/19/18 11:26 LM [id number]) Co-Sign 07/19/18 10:55 LP Nutrition Notes Need for Assessment generated from: Low BMI Initial or Follow up Assessment Other Pertinent Diagnosis Gastroparesis Current Diet No diet Labs/Tests Reviewed Pertinent Medications Reviewed Height 5 ft Weight 42.2 kg Usual Body Weight 45.45 kg [place] Body Weight (lbs) 100.0 BMI 18.1 Subjective/Other Information Screen for low BMI. Pt stated that she gets all of her nutriton via TPN since May 2018. Pt had Foster placed April 2018. Pt stated she has gained about 10 lb since starting TPN but recently lost weight in the past 3-4 days. Pt also has J tube. Burn Absent Trauma Absent #1 Nutrition Diagnosis Altered GI function Etiology Gastroparesis As Evidenced by Signs and Symptoms Pt requiring TPN Is patient on ventilator? No Is Patient Ambulatory and/or Out of Bed No REE-([facility]-confined to bed) 1195.920 Kcal/Kg value to use for calculation 40 Approximate Energy Requirements Using 1688 kcal/Kg Calculation Used for Recommendations Kcal/kg Additional Notes Protein: 42- 51 g (1-1.2 g/kg) Fluids: 1 mL/kcal Nutrition Intervention Change Diet Order: TPN once consulted Goal #1 Meet at least 75% of energy and protein needs Anticipated Discharge Needs: TPN Follow-Up By: 07/22/18 Additional Comments F/U for POC
--- NOTE | 2018-07-22 10:30 | Discharge Summary ---
Providers - Providers Date of Admission: 07/18/18 13:12 Attending physician: JOSE A PIERSON MD 07/18/18 13:11 Consult to Physician [CONS] Stat Comment: DR TURPIN AWARE OF PT Consulting Provider: RADHA TURPIN Physician Instructions: Reason For Exam: Dan replacement 07/18/18 15:19 Consult to Physician [CONS] Routine Comment: Consulting Provider: TOÑO FELDER Physician Instructions: Reason For Exam: line infection 07/19/18 02:18 Consult to Physician [CONS] Routine Comment: Consulting Provider: ZINA MCGILL Physician Instructions: Reason For Exam: For resuming G tube feeding Primary care physician: SOFTWARE SECUR[employer] ARCHITECT Hospitalization Reason for admission: abdominal pain Condition: Stable Hospital course: Patient 42-year-old presents with severe gastroparesis on TPN chronically had fever associated with catheter. as been having fever and chills for last 4 days mary after tube feeds.Forgot flushing one day.Patient was treatied with Ceftin by her PCP for URI symptoms. did not improve. Patient has been having chills every time she puts TPN or fluids in her dan line. Suspect infection Dan's catheter. Currently on cefepime and vancomycin here currently hemodynamic was stable. No fever. Patient does complain of abdominal pain which is localized around the PEG site. Scheduled to be downsized. Patient states it has been air underneath the area. This symptom was prior to admission. She's had this for a while. Patient underwent a successful Dan catheter change today she was in tears and stated that she was promised that she will be discharged within 30 minutes of the catheter exchange. I explained to her that based on her report that she has more pain than normal 1 to rule out any other pathology the patient stated that she does not have any other pathology going on but it was just the day Dan as changed as she is chronically in pain. Nevertheless I discussed with ID cancer and the patient has been afebrile with no white count and no growth in all the cultures she can be discharged today and follow-up with her pain doctor and also GI and surgeon outpatient. she refused to await ct scan result (1) Abdominal pain/Peritoneal irration KUB shows non obstructive gas pattern (2) SIRS. Sepsis ruled out. (3) Local infection due to Dan catheter (4) Gastroparesis- severe Disposition: [id number]/TX-06 HOME [facility] Time spent for discharge: 35 mins Core Measure Documentation - Palliative Care Palliative Care/ Comfort Measures: Not Applicable - Core Measures Any of the following diagnoses?: none Exam - Physical Exam Narrative exam: - Physical exam Narrative exam: General appearance: Present: no acute distress - EENT Eyes: Present: PERRL, EOM intact ENT: hearing intact, clear oral mucosa, dentition normal - Neck Neck: Present: supple, normal ROM - Respiratory Respiratory effort: normal Respiratory: bilateral: CTA - Cardiovascular Rhythm: irregularly irregular - Extremities Extremities: no ischemia, pulses intact, pulses symmetrical, No edema, normal temperature, normal color Peripheral Pulses: within normal limits - Abdominal General gastrointestinal: soft, tender, non-distended, hypoactive bowel sounds Localized gastrointestinal: tender: epigastric periumbilical - Integumentary Integumentary: Present: clear, warm, dry - Psychiatric Psychiatric: appropriate mood/affect, intact judgment & insight, cooperative - Neurologic Neurologic: CNII-XII intact, no focal deficits, moves all extremities - Constitutional Vitals: Temp Pulse Resp BP Pulse Ox 98.1 F 68 16 113/74 98 07/22/18 07:02 07/22/18 07:02 07/22/18 07:02 07/22/18 07:02 07/22/18 07:02 Plan Activity: advance as tolerated, fall precautions Diet: advance as tolerated Special Instructions: record daily BP diary Additional Instructions: follow up with your regular doctors and pain doctors Follow up with: MARTI HAYS MD [Primary Care Provider] - 3-5 Days RADHA FERRARI MD [Staff Physician] - 7 Days
[2018-07-22 11:34] LABS: Hematocrit 41.5 % (30.3-42.9); Hemoglobin 13.7 gm/dl (10.1-14.3); Mean Corpuscular HGB Conc 33 % (30-34); Mean Corpuscular Volume 96 fl (79-97); Platelet Count 216 K/mm3 (140-440); Red Blood Count 4.34 M/mm3 (3.65-5.03); Red Cell Distribution Width 14.1 % (13.2-15.2)
--- NOTE | 2018-07-22 13:36 | Cat Scan Report ---
CT ABDOMEN PELVIS WITHOUT CONTRAST: HISTORY: abdominal pain. COMPARISON: none. TECHNIQUE: Helical CT in 1.25mm intervals without IV contrast. Sagittal and coronal reconstructions. FINDINGS: Lung bases: Normal. Liver: Normal. Biliary system: Cholecystectomy. No biliary dilatation. Pancreas: Normal. Spleen: Normal. Kidneys/ureters/bladder: Normal. Adrenal glands: Normal. Aorta: Normal. Intestines: There is minimal oral contrast in the distal colon. A GJ tube is in position. There is no evidence for obstruction or focal inflammation. There is moderate stool in distal colon. Appendix: Appendectomy changes are suspected. Pelvic viscera: Hysterectomy changes are suspected. A 3.2 cm cyst is identified in the right adnexal region which is probably ovarian in origin. The left adnexa is unremarkable. Ascites: None. Adenopathy: None. Musculoskeletal: Normal. IMPRESSION: No acute inflammatory process is identified. Surgical changes as described. Probable 3.2 cm right ovarian cyst. Mild constipation.
[2018-07-22 15:35] LABS: Band Neutrophils # (Manual) 0.7 K/mm3; Basophils % (Manual) 0 % (0.0-1.8); Total Cells Counted 100
[2018-07-22 15:36] LABS: Anisocytosis 1+
== END 2018-07-22 11:20 | disposition home health service (06) | DRG 286 ==
LOC: ED 10:02 → 3A 13:12
PROVIDERS: ADMIT Internal Medicine; ATTEND Internal Medicine
PROC: 0JH63XZ Insertion of Tunneled Vascular Access Device into Chest Subcutaneous Tissue and Fascia, Percutaneous Approach (ICD-10-PCS; principal; 2018-07-22)
PROC: 02H633Z Insertion of Infusion Device into Right Atrium, Percutaneous Approach (ICD-10-PCS; 2018-07-22)
PROC: B244ZZZ Ultrasonography of Right Heart (ICD-10-PCS; 2018-07-22)
PROC: 05PYX3Z Removal of Infusion Device from Upper Vein, External Approach (ICD-10-PCS; 2018-07-22)
PROC: B2141ZZ Fluoroscopy of Right Heart using Low Osmolar Contrast (ICD-10-PCS; 2018-07-22)
DX: T80.211A Bloodstream infection due to central venous catheter, initial encounter (principal); K65.9 Peritonitis, unspecified; R65.10 Systemic inflammatory response syndrome (SIRS) of non-infectious origin without acute organ dysfunction; F17.200 Nicotine dependence, unspecified, uncomplicated; K31.84 Gastroparesis; K21.9 Gastro-esophageal reflux disease without esophagitis; Y83.8 Other surgical procedures as the cause of abnormal reaction of the patient, or of later complication, without mention of misadventure at the time of the procedure; Z90.49 Acquired absence of other specified parts of digestive tract; Z88.5 Allergy status to narcotic agent; Z88.8 Allergy status to other drugs, medicaments and biological substances; Z88.6 Allergy status to analgesic agent; Z91.041 Radiographic dye allergy status; Z90.710 Acquired absence of both cervix and uterus; Y92.89 Other specified places as the place of occurrence of the external cause
CPT/HCPCS: 36415; 36558; 36589; 71045; 74018; 74176; 77001; 80053; 80074; 80202; 81001; 82140; 83690; 85007; 85025; 85610; 85730; 87040; 96365; 99406; G0378; C1752; C1769; J0692; J1170; J1644; J1650; J2250; J2704; J3370; J7030; J7050

== ENCOUNTER 2018-08-16 09:33 | Day surgery (SDC) | payer MEDICARE ==
[~2018-08-16 09:33] MED LIST changes: -NACL 0.9% 1000 ML 1,000 ML IV SCH
[2018-08-16] MEDS ORDERED: BENADRYL IV ONE (11:56)
[2018-08-16] MEDS ORDERED: DILAUDID IV PRN (11:57)
[2018-08-16] MEDS ORDERED: PEPCID IV SCH (12:00)
[2018-08-16] MEDS: NACL 0.9% 1000 ML 1,000 ML IV SCH ×2 (12:16→13:30)
[2018-08-16] MEDS ORDERED: DILAUDID ONE (13:01)
[2018-08-16] MEDS ORDERED: NACL 0.9% 250ML 0 ML ONE (13:01)
[2018-08-16] MEDS ORDERED: XYLOCAINE 2% INFILTRATI ONE (13:01)
[2018-08-16] MEDS ORDERED: NACL 0.9% 500 ML IR ONE (13:01)
[2018-08-16] MEDS ORDERED: LEVAQUIN 500MG/100ML 0 MG/0 ML BAG IV ONE (13:01)
[2018-08-16] MEDS ORDERED: ANCEF/STERILE WATER 2 GM/20 ML 2 GM/20 ML SYRINGE IV ONE (13:12)
[2018-08-16] MEDS: SUBLIMAZE ONE ×3 (13:33→13:48)
[2018-08-16] MEDS: VERSED ONE ×3 (13:33→13:48)
--- NOTE | 2018-08-16 13:54 | Operative Report ---
Operative Report Operative Report: EXAM: 1. Jejunostomy tube exchange from standard 16 Kosovan jejunostomy tube to a 14 Kosovan jejunostomy tube DATE: 08/16/18 INDICATION: Chronic gastroparesis secondary to abdominal surgery with chronic TPN and jejunostomy tube leakage with balloon rupture. MEDICATIONS: Please see nursing report for full details. DEVICES: 14 Kosovan standard jejunostomy tube with balloon CAT OPERATOR: RADHA TURPIN MD CONTRAST: None PROCEDURE: The risks, benefits, and alternatives were discussed and informed consent was obtained. The patient was transported to the angiography suite in satisfactory/stable condition and was transported onto the angiography table. The abdomen was prepped and draped in a sterile fashion. Contrast was injected through the indwelling jejunostomy tube in order to determine which loop was afferent and which loop was efferent. The jejunostomy site was anesthetized due to discomfort at the site. 0.035 inch stiff Glidewire was passed into the jejunostomy catheter and the jejunostomy catheter was removed. 14 Kosovan jejunostomy tube was then advanced over the stiff Glidewire. Contrast was injected confirming position within the bowel and confirming peristalsis. 3-4 mL of saline with dilute contrast was then infused into the balloon port of the jejunostomy tube. The tube was secured and a 2-0 Ethilon was used to secure the bumper to prevent antegrade balloon migration and subsequent obstruction. Patient tolerated the procedure well. No immediate postprocedural complication. The patient was transferred from the angiography suite [facility] condition. FINDINGS: 1. Successful jejunostomy tube exchange. IMPRESSION: 1. Successful jejunostomy tube exchange and contrast injection.
--- NOTE | 2018-08-16 13:54 | Short Stay Summary ---
Short Stay Documentation Date of service: 08/16/18 Narrative H&P: 42 year old female with TPN dependence and J tube malfunction - History Principal diagnosis: J tube malfunction Past Medical History: other (gastroparesis s/p multiple surgeries) Past Surgical History: bowel surgery - Allergies and Medications Current Medications: Allergies ibuprofen Adverse Reaction (Verified 07/18/18 10:16) Swelling IV MORPHINE Allergy (Uncoded 09/10/14 11:01) Itching IV CONTRAST Adverse Reaction (Uncoded 03/13/14 11:09) Vomiting lipids Adverse Reaction (Uncoded 08/16/18 10:20) Unknown body aches Home Medications Medication Instructions Recorded Confirmed Last Taken Type LORazepam [Ativan] 2 mg PO PRN PRN 03/13/14 08/16/18 08/15/18 19:00 History Oxycodone HCl/Acetaminophen 1 tab PO Q4HR PRN 03/13/14 08/16/18 08/16/18 05:00 History [Percocet 10/325 mg] Active Medications Famotidine (Pepcid) 20 mg IV NOW LAURA Last Admin: 08/16/18 12:12 Dose: 20 mg Documented by: Hydromorphone HCl (Dilaudid) 1 mg IV NOW PRN PRN Reason: Pain , Severe (7-10) Last Admin: 08/16/18 12:08 Dose: 1 mg Documented by: Cefazolin Sodium (Ancef/Sterile Water 2 Gm/20 Ml) 2 gm in 20 mls @ 80 mls/hr IV PREOP NR; Protocol Stop: 08/16/18 23:00 Last Admin: 08/16/18 13:33 Dose: 20 mls Documented by: Sodium Chloride (Nacl 0.9% 1000 Ml) 1,000 mls @ 42 mls/hr IV DIRECT LAURA Last Admin: 08/16/18 13:30 Dose: 42 mls/hr Documented by: - Physical exam General appearance: no acute distress Lungs: Normal air movement Gastrointestinal: other (J tube site painful) - Brief post op/procedure progress note Date of procedure: 08/16/18 Pre-op diagnosis: J tube malfunction Post-op diagnosis: same Procedure: J tube exchange Anesthesia: local (w/ conscious sedation) Surgeon: RADHA TURPIN Estimated blood loss: minimal Condition: stable - Hospital course Hospital course: Ready for discharge - Disposition Condition at discharge: Stable Disposition: DC-01 TO HOME OR SELFCARE - Discharge Diagnoses (1) Jejunostomy tube leak Status: Acute (2) Jejunostomy tube site pain Status: Acute (3) Gastroparesis Status: Chronic Short Stay Discharge Plan Activity: advance as tolerated Weight Bearing Status: Weight Bear as Tolerated Diet: other (per Dr. Villagran) Wound: keep clean and dry, per wound nurse instructions Follow up with: SUDHIR CHAVEZ MD [Primary Care Provider] - 7 Days
[2018-08-16] MEDS ORDERED: FLUSH HEPARIN IV ONE (14:11)
[2018-08-16 15:10] VITALS: BP 128/62
== END 2018-08-16 14:35 | disposition home or self-care (01) ==
LOC: CATHLABREC 09:33
PROVIDERS: ATTEND Radiology Diagnostic Radiology
DX: K31.84 Gastroparesis (principal); F17.210 Nicotine dependence, cigarettes, uncomplicated; K94.13 Enterostomy malfunction; K94.19 Other complications of enterostomy; K21.9 Gastro-esophageal reflux disease without esophagitis; Z90.710 Acquired absence of both cervix and uterus; Z98.890 Other specified postprocedural states; Z79.899 Other long term (current) drug therapy; Z90.49 Acquired absence of other specified parts of digestive tract; Z86.2 Personal history of diseases of the blood and blood-forming organs and certain disorders involving the immune mechanism; Z88.8 Allergy status to other drugs, medicaments and biological substances
CPT/HCPCS: 49451; 96374; 96375; 99156; C1769; J0690; J1170; J1200; J1642; J2250; J3010; J7030; J1956; J7050; Q9967

== ENCOUNTER 2018-10-24 09:44 | Day surgery (SDC) | payer MEDICARE, OTHER ==
[2018-10-24] MEDS ORDERED: NACL 0.9% 500 ML IR ONE (10:34)
[2018-10-24] MEDS ORDERED: NACL 0.9% 500 ML 500 ML ONE (10:34)
[2018-10-24] MEDS ORDERED: ANCEF/STERILE WATER 2 GM/20 ML 2 GM/20 ML SYRINGE IV ONE (10:34)
--- NOTE | 2018-10-24 10:42 | Short Stay Summary ---
Short Stay Documentation Date of service: 10/24/18 Narrative H&P: 42 year old female with gastroparesis status post bowel surgery for gastroparesis by outside physician which failed to relieve her symptoms. She is now J tube dependent and TPN dependent. J tube became dislodged and needs to be placed again. Foster catheter is no longer needed for TPN and can be removed. - History Principal diagnosis: gastroparesis, J tube malfunction, end of therapy for TPN catheter Past Medical History: other (gastroparesis) Past Surgical History: bowel surgery, Other (Foster placement in past ; J tube placement in past) Social history: no significant social history - Allergies and Medications Current Medications: Allergies ibuprofen Adverse Reaction (Verified 07/18/18 10:16) Swelling IV MORPHINE Allergy (Uncoded 09/10/14 11:01) Itching IV CONTRAST Adverse Reaction (Uncoded 03/13/14 11:09) Vomiting lipids Adverse Reaction (Uncoded 08/16/18 10:20) Unknown body aches Home Medications Medication Instructions Recorded Confirmed Last Taken Type LORazepam [Ativan] 2 mg PO PRN PRN 03/13/14 08/16/18 08/15/18 19:00 History Oxycodone HCl/Acetaminophen 1 tab PO Q4HR PRN 03/13/14 08/16/18 08/16/18 05:00 History [Percocet 10/325 mg] - Physical exam General appearance: no acute distress Lungs: Normal air movement Gastrointestinal: other (discomfort at stoma site) - Brief post op/procedure progress note Date of procedure: 10/24/18 Pre-op diagnosis: J tube malfunction, end of therapy of TPN catheter, gastroparesis Post-op diagnosis: same Procedure: 1. Fluoroscopic guided placement of a 14 Fr J tube 2. Fluoroscopic guided removal of a right internal jugular vein tunneled cuffed Foster catheter Anesthesia: MAC Surgeon: RADHA TURPIN Estimated blood loss: minimal Condition: stable - Hospital course Hospital course: Tolerated procedure well. - Disposition Condition at discharge: Stable Disposition: DC-01 TO HOME OR SELFCARE - Discharge Diagnoses (1) Jejunostomy tube fell out Status: Acute (2) Gastroparesis Status: Chronic Short Stay Discharge Plan Activity: advance as tolerated Weight Bearing Status: Weight Bear as Tolerated Diet: other (feeds per instructions) Wound: keep clean and dry Follow up with: SUDHIR CHAVEZ MD [Primary Care Provider] - 7 Days
--- NOTE | 2018-10-24 10:53 | Anesthesia Day of Surgery ---
Anesthesia Day of Surgery - Day of Surgery Patient Examined: Yes Patient H&P Reviewed: Yes Patient is NPO: Yes Beta Blockers: No
--- NOTE | 2018-10-24 10:55 | Anesthesia Consultation ---
Anesthesia Consult and Med Hx Date of service: 10/24/18 - Airway Anesthetic Teeth Evaluation: Good ROM Head & Neck: Adequate Mental/Hyoid Distance: Adequate Mallampati Class: Class III Intubation Access Assessment: Good - Pulmonary Exam CTA: Yes - Cardiac Exam Cardiac Exam: No Murmur - Pre-Operative Health Status ASA Pre-Surgery Classification: ASA2 - Pulmonary Hx Smoking: Yes (1 ppd) Hx Pneumonia: No - Central Nervous System Hx Psychiatric Problems: No - Gastrointestinal Hx Gastroesophageal Reflux Disease: No (gasroparesis- nausea and vomiting ) - Hematic Hx Anemia: Yes - Other Systems Hx Cancer: No
[2018-10-24 10:57] LABS: Basophils % (Auto) 0.9 % (0.0-1.8); Eosinophils # (Auto) 0.3 K/mm3 (0.0-0.4); Eosinophils % (Auto) 5.6 % (0.0-4.3); Hematocrit 44.2 % (30.3-42.9); Lymphocytes # (Auto) 1.7 K/mm3 (1.2-5.4); Lymphocytes % (Auto) 33.4 % (13.4-35.0); Mean Corpuscular HGB Conc 34 % (30-34); Mean Corpuscular Volume 95 fl (79-97); Monocytes # (Auto) 0.5 K/mm3 (0.0-0.8); Monocytes % (Auto) 8.8 % (0.0-7.3); Platelet Count 231 K/mm3 (140-440); Red Blood Count 4.66 M/mm3 (3.65-5.03); Red Cell Distribution Width 14.1 % (13.2-15.2)
[2018-10-24 11:08] LABS: INR 0.88 (0.87-1.13); Partial Thromboplastin Time 25.1 Sec. (24.2-36.6)
[2018-10-24] MEDS ORDERED: XYLOCAINE MPF 2% ONE (11:08)
[2018-10-24] MEDS ORDERED: ZOFRAN ONE (11:08)
[2018-10-24 11:10] LABS: BUN/Creatinine Ratio 35; Blood Urea Nitrogen 14 mg/dL (7-17); Calcium 9.4 mg/dL (8.4-10.2); Hemolysis Index 114
[2018-10-24] MEDS ORDERED: VERSED ONE (11:10)
[2018-10-24] MEDS ORDERED: SUBLIMAZE ONE ×2 (11:10→11:55)
[2018-10-24] MEDS ORDERED: DIPRIVAN 10 MG/ML IV ONE ×2 (11:10)
[2018-10-24] MEDS ORDERED: SOLU-Medrol ONE (11:16)
[2018-10-24] MEDS ORDERED: BENADRYL ONE (11:16)
[2018-10-24] MEDS ORDERED: PEPCID IV ONE (11:17)
[2018-10-24] MEDS: XYLOCAINE 2% INFILTRATI ONE ×3 (11:38→11:59)
--- NOTE | 2018-10-24 12:15 | Operative Report ---
Operative Report Operative Report: [facility]IVE [facility] EXAM: 1. Ultrasound-guided removal of the right internal jugular tunneled cuffed Foster catheter 2. Fluoroscopic-guided placement of a 14 [place] Zealander jejunostomy tube DATE: 10/24/18 INDICATION: Chronic gastroparesis secondary to abdominal surgery with no further need of TPN with jejunostomy tube dislodgment and removal (by mistake). MEDICATIONS: Please see nursing report for full details. DEVICES: 9.6 [place] single lumen tunneled cuffed Foster catheter, removed 14 [place] Zealander standard jejunostomy tube with balloon DIRECTOR OF MEDICAL SERVICES: RADHA TURPIN MD CONTRAST: None PROCEDURE: The risks, benefits, and alternatives were discussed and informed consent was obtained. The patient was transported to the angiography suite in satisfactory/stable condition and was transported onto the angiography table. The patient's right internal jugular Foster catheter was prepped and draped and the abdomen was prepped and draped in sterile condition. Lidocaine was infiltrated at the dermatotomy site. Heparin was withdrawn from the catheter. Using a hemostat, blunt dissection was performed and the cuff was extracted. The catheter was extracted and pressure was held at the venotomy and dermatotomy site until hemostasis was achieved. This was done under fluoroscopic guidance. Sterile bandage was then applied. Attention was then directed towards towards the abdomen. The abdomen was prepped and draped in a sterile fashion. Contrast was injected through the indwelling ostomy in order to determine which loop was afferent and which loop was efferent. The jejunostomy site was anesthetized. 0.035 inch stiff Glidewire and angled catheter will use negotiate the bowel into the efferent loop and contrast was injected confirming peristalsis in the direction of the catheter. 14 [place]ander jejunostomy tube was then advanced over the stiff Glidewire. Contrast was injected confirming position within the bowel and confirming peristalsis. The same amount of 5 mL of fluid was then used to inflate the balloon to prevent leakage of fluid through the jejunostomy tract. Contrast was injected confirming peristalsis past the balloon. The tube was secured and a 2-0 Ethilon was used to secure the bumper to prevent antegrade balloon migration and subsequent obstruction. Patient tolerated the procedure well. No immediate postprocedural complication. The patient was transferred from the angiography suite back to the floor in stable condition. FINDINGS: 1. Successful jejunostomy tube placement. 2. Successful tunneled catheter removal. IMPRESSION: 1. Successful fluoroscopically guided removal of a right internal jugular tunneled cuffed single-lumen Foster catheter. 2. Successful jejunostomy tube placement and contrast injection.
[2018-10-24 14:47] VITALS: BP 103/58
== END 2018-10-24 14:07 | disposition home or self-care (01) ==
LOC: CATHLABREC 09:44
PROVIDERS: ATTEND Radiology Diagnostic Radiology
DX: Z45.2 Encounter for adjustment and management of vascular access device (principal); K31.84 Gastroparesis; K21.9 Gastro-esophageal reflux disease without esophagitis; F17.210 Nicotine dependence, cigarettes, uncomplicated; Z79.899 Other long term (current) drug therapy; Z88.5 Allergy status to narcotic agent; Z90.49 Acquired absence of other specified parts of digestive tract; Z90.710 Acquired absence of both cervix and uterus; Z98.890 Other specified postprocedural states; Z86.2 Personal history of diseases of the blood and blood-forming organs and certain disorders involving the immune mechanism; Z88.8 Allergy status to other drugs, medicaments and biological substances
CPT/HCPCS: 36415; 36589; 49441; 80048; 85025; 85610; 85730; C1751; C1769; J0690; J1200; J2250; J2704; J2930; J3010; J7040; J2405; Q9967

== ENCOUNTER 2018-11-13 10:15 | Day surgery (SDC) | payer MEDICARE, OTHER ==
[2018-11-13] MEDS ORDERED: SUBLIMAZE ONE (13:09)
[2018-11-13] MEDS ORDERED: NACL 0.9% 250ML 250 ML ONE (13:10)
[2018-11-13] MEDS ORDERED: NACL 0.9% 500 ML IR ONE (13:10)
[2018-11-13] MEDS ORDERED: XYLOCAINE 2% INFILTRATI ONE (13:10)
[2018-11-13] MEDS: DILAUDID ONE ×2 (13:33→13:41)
[2018-11-13] MEDS: VERSED ONE ×2 (13:33→13:38)
[2018-11-13] MEDS ORDERED: SOLU-Medrol ONE (13:34)
[2018-11-13] MEDS ORDERED: BENADRYL ONE (13:34)
--- NOTE | 2018-11-13 13:53 | Short Stay Summary ---
Short Stay Documentation Date of service: 11/13/18 - History Principal diagnosis: Gastroparesis Past Medical History: other (gastroparesis) Past Surgical History: Other (J-tube placement and exchange) Social history: no significant social history - Allergies and Medications Current Medications: Allergies ibuprofen Adverse Reaction (Verified 07/18/18 10:16) Swelling IV MORPHINE Allergy (Uncoded 09/10/14 11:01) Itching IV CONTRAST Adverse Reaction (Uncoded 03/13/14 11:09) Vomiting lipids Adverse Reaction (Uncoded 08/16/18 10:20) Unknown body aches Home Medications Medication Instructions Recorded Confirmed Last Taken Type RX: LORazepam [Ativan] 2 mg PO PRN PRN 03/13/14 11/13/18 08/15/18 19:00 History RX: Oxycodone HCl/Acetaminophen 1 tab PO Q4HR PRN 03/13/14 11/13/18 11/13/18 History [Percocet 10/325 mg] 1 Iron 325 MG 325 mg PO DAILY 11/13/18 11/13/18 11/12/18 History 325mg - Physical exam General appearance: no acute distress Integumentary: no rash Lungs: Normal air movement Breasts: deferred Heart: Regular rate Gastrointestinal: normal (no erythema) Female Genitourinary: deferred Rectal Exam: deferred Extremities: no ischemia - Brief post op/procedure progress note Date of procedure: 11/13/18 Pre-op diagnosis: gastroparesis, J tube malfunction Post-op diagnosis: same Procedure: J to G tube exchange Anesthesia: local Surgeon: RADHA FERRARI Estimated blood loss: none Pathology: none Condition: stable - Disposition Condition at discharge: Good Disposition: DC-01 TO HOME OR SELFCARE Short Stay Discharge Plan Activity: advance as tolerated Weight Bearing Status: Weight Bear as Tolerated Diet: regular Wound: keep clean and dry, per your surgeon's advice Follow up with: SUDHIR CHAVEZ MD [Primary Care Provider] - 7 Days
--- NOTE | 2018-11-13 13:58 | Operative Report ---
Operative Report Operative Report: Exam: Exchange of J-tube to J-tube under fluoroscopy Clinical indication: Pain with a history of gastroparesis and malfunctioning J- tube Date: 11/13/2018 Procedure: Following an explanation of the risks, benefits and alternatives; written informed consent was obtained. The patient was brought to the injury Suite and placed in supine position on the examination table. Initial fluoroscopic evaluation of her abdomen demonstrated an indwelling jejunostomy tube. The patient's abdomen and indwelling tube were prepped and draped in the usual sterile fashion. Following premedication, contrast was attempted to be injected to the patient's indwelling jejunostomy tube without success secondary to clock. A 0.035 Glidewire was then manipulated through the jejunostomy tube. The jejunostomy balloon was deflated. The jejunostomy tube was then removed intact. A new HOLLIS- BOJORQUEZ low profile gastrostomy tube was then placed over the guidewire and advanced. The balloon was inflated with 5 mL's of saline. Contrast was injected through the newly placed jejunostomy tube which demonstrated appropriate opacification of the jejunal loops proximal and distal to the jejunostomy tube. No leaks were identified. The new tube was securely dressed. The patient tolerated the procedure well. There were no immediate post procedure complications. Conscious sedation was performed under the guidance of radiologic nursing. Continuous cardiopulmonary monitoring was utilized. Impression: Exchange of occluded jejunostomy tube to a Low Profile 16F 2.0 stomal length HOLLIS-BOJORQUEZ gastrostomy tube which is functioning as a jejunostomy tube.
[2018-11-13 14:09] VITALS: BP 113/56
== END 2018-11-13 14:30 | disposition home or self-care (01) ==
LOC: CATHLABREC 10:15
PROVIDERS: ATTEND Radiology Diagnostic Radiology
DX: K94.23 Gastrostomy malfunction (principal); K31.84 Gastroparesis; F17.210 Nicotine dependence, cigarettes, uncomplicated; K21.9 Gastro-esophageal reflux disease without esophagitis; Z98.890 Other specified postprocedural states; Z79.899 Other long term (current) drug therapy; Z90.49 Acquired absence of other specified parts of digestive tract; Z90.710 Acquired absence of both cervix and uterus; Z88.8 Allergy status to other drugs, medicaments and biological substances; D64.9 Anemia, unspecified; Y83.8 Other surgical procedures as the cause of abnormal reaction of the patient, or of later complication, without mention of misadventure at the time of the procedure; Y82.8 Other medical devices associated with adverse incidents
CPT/HCPCS: 49450; 99156; 99157; C1769; J1170; J1200; J2250; J2930; J7050; J3010; Q9967

== ENCOUNTER 2018-11-20 11:52 | Day surgery (SDC) | payer MEDICARE, OTHER ==
[2018-11-20 12:55] LABS: Basophils % (Auto) 0.7 % (0.0-1.8); Eosinophils # (Auto) 0.4 K/mm3 (0.0-0.4); Eosinophils % (Auto) 6.7 % (0.0-4.3); Hematocrit 41.9 % (30.3-42.9); Hemoglobin 14.4 gm/dl (10.1-14.3); Lymphocytes # (Auto) 2.2 K/mm3 (1.2-5.4); Lymphocytes % (Auto) 39.9 % (13.4-35.0); Mean Corpuscular HGB Conc 34 % (30-34); Mean Corpuscular Volume 94 fl (79-97); Monocytes # (Auto) 0.4 K/mm3 (0.0-0.8); Monocytes % (Auto) 7.5 % (0.0-7.3); Platelet Count 236 K/mm3 (140-440); Red Blood Count 4.46 M/mm3 (3.65-5.03); Red Cell Distribution Width 13.5 % (13.2-15.2)
[2018-11-20] MEDS ORDERED: NACL 0.9% 1000 ML 1,000 ML IV SCH (13:00)
[2018-11-20 13:09] LABS: Alanine Aminotransferase 14 units/L (7-56); Albumin 4.4 g/dL (3.9-5); BUN/Creatinine Ratio 26; Blood Urea Nitrogen 13 mg/dL (7-17); Calcium 9.1 mg/dL (8.4-10.2); Hemolysis Index 6
[2018-11-20 13:10] LABS: INR 0.96 (0.87-1.13)
[2018-11-20 13:11] LABS: Partial Thromboplastin Time 30.9 Sec. (24.2-36.6)
[2018-11-20] MEDS ORDERED: NACL 0.9% 500 ML IR ONE (13:19)
[2018-11-20] MEDS ORDERED: XYLOCAINE 2% INFILTRATI ONE (13:20)
[2018-11-20] MEDS ORDERED: DILAUDID ONE (14:07)
[2018-11-20] MEDS ORDERED: DILAUDID IV NR (14:10)
[2018-11-20] MEDS ORDERED: DIPRIVAN 10 MG/ML IV ONE ×2 (14:12→14:13)
[2018-11-20] MEDS ORDERED: VERSED ONE (14:12)
[2018-11-20] MEDS ORDERED: XYLOCAINE MPF 2% ONE (14:13)
--- NOTE | 2018-11-20 14:16 | Operative Report ---
Operative Report Operative Report: EXAM: 1. Fluoroscopic-guided exchange of a 16 Greek low profile gastrostomy tube in the jejunostomy to an 18 Greek low profile jejunostomy tube DATE: 11/20/18 INDICATION: Chronic gastroparesis secondary to abdominal surgery with leakage at the jejunostomy tube site. MEDICATIONS: Please see nursing report for full details. DEVICES: 18 Greek low profile 2 cm stomal length jejunostomy tube with balloon MACHINE HOSE CUTTER: RADHA TURPIN MD CONTRAST: None PROCEDURE: The risks, benefits, and alternatives were discussed and informed consent was obtained. The patient was transported to the angiography suite in satisfactory/stable condition and was transported onto the angiography table. Attention was then directed towards towards the abdomen. The abdomen was prepped and draped in a sterile fashion. Contrast was injected through the indwelling gastrostomy in order to determine which loop was afferent and which loop was efferent. The jejunostomy site was anesthetized. 0.035 inch stiff Glidewire and angled catheter will use negotiate the bowel into the efferent loop and contrast was injected confirming peristalsis in the direction of the catheter. 18 Greek jejunostomy tube was then advanced over the stiff Glidewire. Contrast was injected confirming position within the bowel and confirming peristalsis. 5 mL of fluid was then used to inflate the balloon to prevent leakage of fluid through the jejunostomy tract. Contrast was injected confirming peristalsis past the balloon. Patient tolerated the procedure well. No immediate postprocedural complication. The patient was transferred from the angiography suite back to the floor in stable condition. FINDINGS: 1. Successful jejunostomy tube exchange IMPRESSION: 1. Successful jejunostomy tube exchange and contrast injection.
--- NOTE | 2018-11-20 14:16 | Short Stay Summary ---
Short Stay Documentation Date of service: 11/20/18 Narrative H&P: Gastroparesis with leaking jejunostomy - History Principal diagnosis: Gastroparesis with leaking jejunostomy H&P: obtained from office - Allergies and Medications Current Medications: Allergies ibuprofen Adverse Reaction (Verified 07/18/18 10:16) Swelling IV MORPHINE Allergy (Uncoded 09/10/14 11:01) Itching IV CONTRAST Adverse Reaction (Uncoded 03/13/14 11:09) Vomiting lipids Adverse Reaction (Uncoded 08/16/18 10:20) Unknown body aches Home Medications Medication Instructions Recorded Confirmed Last Taken Type LORazepam [Ativan] 2 mg PO PRN PRN 03/13/14 11/20/18 08/15/18 19:00 History Oxycodone HCl/Acetaminophen 1 tab PO Q4HR PRN 03/13/14 11/13/18 11/20/18 10:00 History [Percocet 10/325 mg] 1 tab Iron 325 MG 325 mg PO DAILY 11/13/18 11/20/18 11/19/18 History 325mg Active Medications Hydromorphone HCl (Dilaudid) 1 mg IV ONCE ONE Stop: 11/20/18 14:11 Sodium Chloride (Nacl 0.9% 1000 Ml) 1,000 mls @ 42 mls/hr IV DIRECT LAURA - Physical exam General appearance: no acute distress Lungs: Normal air movement Gastrointestinal: other (pain at jejunostomy site) - Brief post op/procedure progress note Date of procedure: 11/20/18 Pre-op diagnosis: Leaking jejunostomy site Post-op diagnosis: same Procedure: J tube exchange from a low profile G tube to a low profile J tube Anesthesia: MAC Surgeon: RADHA TURPIN Estimated blood loss: minimal Condition: stable - Hospital course Hospital course: Patient has chronic pain issues. She had severe pain at jejunostomy site prior to procedure. Immediately after the procedure which occured without technical complications, the patient had severe lower abdominal pain out of proportion. CT without contrast obtained which demonstrated no acute issues. She was provided dilaudid 1 mg and her pain improved. I discussed the situation with Dr. Villagarn who did not have any additional recommendations. Discussed with patient and provided options for overnight admission with dilaudid ceo & founder. She declined. Therefore I provided her additional oral pain medication. She will contact our office tomorrow to make sure she is doing better. - Disposition Condition at discharge: Stable Disposition: DC-01 TO HOME OR SELFCARE - Discharge Diagnoses (1) Jejunostomy tube leak Status: Acute (2) Jejunostomy tube site pain Status: Acute Short Stay Discharge Plan Activity: advance as tolerated Weight Bearing Status: Weight Bear as Tolerated Diet: advance as tolerated Wound: keep clean and dry Follow up with: SUDHIR CHAVEZ MD [Primary Care Provider] - 7 Days
[2018-11-20] MEDS ORDERED: PEPCID IV ONE (14:18)
[2018-11-20] MEDS ORDERED: BENADRYL ONE (14:21)
--- NOTE | 2018-11-20 14:29 | Anesthesia Consultation ---
Anesthesia Consult and Med Hx Date of service: 11/20/18 - Airway Anesthetic Teeth Evaluation: Good ROM Head & Neck: Adequate Mental/Hyoid Distance: Adequate Mallampati Class: Class II Intubation Access Assessment: Probably Good - Pulmonary Exam CTA: Yes - Cardiac Exam Cardiac Exam: RRR - Pre-Operative Health Status ASA Pre-Surgery Classification: ASA3 Proposed Anesthetic Plan: MAC - Pulmonary Hx Smoking: Yes (1 PPD) Hx Respiratory Symptoms: No - Cardiovascular System Hx Hypertension: No Hx Heart Attack/AMI: No Hx Cardia Arrhythmia: No - Central Nervous System CVA: No - Gastrointestinal Hx Gastroesophageal Reflux Disease: No (gastroparesis 2/2 g-tube) - Endocrine Hx Renal Disease: No Hx Liver Disease: No Hx Insulin Dependent Diabetes: No Hx Non-Insulin Dependent Diabetes: No Hx Thyroid Disease: No - Other Systems Hx Obesity: No - Additional Comments Anesthesia Medical History Comments: No hx anesthetic complications.
--- NOTE | 2018-11-20 14:29 | Anesthesia Day of Surgery ---
Anesthesia Day of Surgery - Day of Surgery Patient Examined: Yes Patient H&P Reviewed: Yes Patient is NPO: Yes
[2018-11-20] MEDS ORDERED: SILVER NITRATE TP ONE ×2 (14:30→14:32)
[2018-11-20] MEDS: XYLOCAINE 1%/ EPI 1:100,000 INFILTRATI ONE ×2 (14:33→14:59)
[2018-11-20] MEDS ORDERED: SUBLIMAZE ONE (15:15)
[2018-11-20 16:16] VITALS: BP 149/58
[2018-11-20] MEDS ORDERED: DILAUDID IV ONE (16:30)
[2018-11-20] MEDS ORDERED: XYLOCAINE TOPICAL 5% TP ONE (16:48)
--- NOTE | 2018-11-20 16:54 | Cat Scan Report ---
PROCEDURE: CT ABDOMEN PELVIS WO CON HISTORY: Pain post j tube exchange FINDINGS: Unenhanced CT of the abdomen and pelvis was performed and compared to the prior examination of July 22, 2018. The heart is normal in size. The lung bases appear hyperinflated but clear. ABDOMEN: There is a percutaneous jejunostomy tube, which is intraluminal. Injection of the tube opacifies norm al appearing jejunum. No leak of contrast is seen. There has been a cholecystectomy. The liver, spleen, adrenal glands, pancreas are unremarkable. There is no renal or ureteral calculus. Pelvis: The appendix is not seen and is likely surgically absent. There is no evidence of diverticulitis. There is no adnexal mass. The uterus appears to be surgically absent. The urinary bladder is within n ormal limits. IMPRESSION: ABDOMEN: Jejunostomy tube, which appears intraluminal Pelvis: Hysterectomy This document is electronically signed by Cb Zheng MD., Nov 20 2018 04:53:07 PM ET
== END 2018-11-20 17:00 | disposition home or self-care (01) ==
LOC: CATHLABREC 11:52
PROVIDERS: ATTEND Radiology Diagnostic Radiology
DX: K31.84 Gastroparesis (principal); K94.13 Enterostomy malfunction; K21.9 Gastro-esophageal reflux disease without esophagitis; F17.210 Nicotine dependence, cigarettes, uncomplicated; Z90.710 Acquired absence of both cervix and uterus; Z90.49 Acquired absence of other specified parts of digestive tract; Z98.890 Other specified postprocedural states; Z79.899 Other long term (current) drug therapy; Z86.2 Personal history of diseases of the blood and blood-forming organs and certain disorders involving the immune mechanism; Z88.8 Allergy status to other drugs, medicaments and biological substances
CPT/HCPCS: 36415; 49452; 74176; 80053; 85025; 85610; 85730; 96374; 96375; C1769; J1170; J1200; J2250; J2704; J3010; J7030; 49451; Q9967

== ENCOUNTER 2019-12-31 09:00 | Outpatient (CLI) | payer MEDICARE ==
[2019-12-31 13:28] LABS: Basophils # (Auto) 0.1 K/mm3 (0.0-0.1); Basophils % (Auto) 0.8 % (0.0-1.8); Eosinophils # (Auto) 0.3 K/mm3 (0.0-0.4); Eosinophils % (Auto) 3.3 % (0.0-4.3); Hematocrit 36.7 % (30.3-42.9); Hemoglobin 12.8 gm/dl (10.1-14.3); Lymphocytes # (Auto) 2.1 K/mm3 (1.2-5.4); Lymphocytes % (Auto) 24.5 % (13.4-35.0); Mean Corpuscular HGB Conc 35 % (30-34); Mean Corpuscular Volume 94 fl (79-97); Monocytes # (Auto) 0.6 K/mm3 (0.0-0.8); Monocytes % (Auto) 7.3 % (0.0-7.3); Platelet Count 241 K/mm3 (140-440); Red Blood Count 3.93 M/mm3 (3.65-5.03); Red Cell Distribution Width 14.1 % (13.2-15.2)
[2019-12-31 13:45] LABS: Alanine Aminotransferase 16 units/L (7-56); Albumin 4.5 g/dL (3.9-5); BUN/Creatinine Ratio 36; Blood Urea Nitrogen 18 mg/dL (7-17); Hemolysis Index 19
== END 2019-12-31 12:00 | disposition home or self-care (01) ==
LOC: LAB 09:00 → EDSTATUS 13:15
PROVIDERS: ATTEND Surgery
DX: R10.9 Unspecified abdominal pain (principal); Z53.8 Procedure and treatment not carried out for other reasons; Z11.59 Encounter for screening for other viral diseases; F17.210 Nicotine dependence, cigarettes, uncomplicated; Z90.49 Acquired absence of other specified parts of digestive tract; K21.9 Gastro-esophageal reflux disease without esophagitis; F41.9 Anxiety disorder, unspecified; Z98.890 Other specified postprocedural states; Z79.899 Other long term (current) drug therapy; Z90.710 Acquired absence of both cervix and uterus; Z98.82 Breast implant status; Z86.2 Personal history of diseases of the blood and blood-forming organs and certain disorders involving the immune mechanism; Z88.8 Allergy status to other drugs, medicaments and biological substances
CPT/HCPCS: 36415; 80053; 83735; 84100; 84478; 85025; U0003

== ENCOUNTER 2020-02-19 06:43 | Day surgery (SDC) | payer MEDICARE ==
[~2020-02-19 06:43] MED LIST changes: +ACETAMINOPHEN 325 MG/10.15 ML ORAL LIQD UNIT DOSE FEEDTUBE NR; +ACETAMINOPHEN 325 MG/10.15 ML ORAL LIQD UNIT DOSE FEEDTUBE SCH; -ANCEF/STERILE WATER 2 GM/20 ML 2 GM/20 ML SYRINGE IV NR; +FAMOTIDINE 20 MG/2 ML INJ IV SCH; +GABAPENTIN 500 MG/10 ML ORAL LIQD FEEDTUBE NR; +GABAPENTIN 500 MG/10 ML ORAL LIQD FEEDTUBE SCH; +LACTATED RINGERS 1,000 ML IV SCH; +MIDAZOLAM 2 MG/2 ML INJ IV NR; +SCOPOLAMINE TRANSDERMAL PATCH 72 HR TD NR
--- NOTE | 2020-02-19 07:19 | Anesthesia Day of Surgery ---
Anesthesia Day of Surgery - Day of Surgery Patient Examined: Yes Patient H&P Reviewed: Yes Patient is NPO: Yes
--- NOTE | 2020-02-19 07:19 | Anesthesia Consultation ---
Anesthesia Consult and Med Hx Date of service: 02/19/20 - Airway Anesthetic Teeth Evaluation: Good, Crowns ROM Head & Neck: Adequate Mental/Hyoid Distance: Adequate Mallampati Class: Class I Intubation Access Assessment: Good - Pulmonary Exam CTA: Yes - Cardiac Exam Cardiac Exam: RRR - Pre-Operative Health Status ASA Pre-Surgery Classification: ASA3 Proposed Anesthetic Plan: General - Pulmonary Hx Smoking: Yes (25pk yr hx) Hx Respiratory Symptoms: No Hx Pneumonia: No Hx Sleep Apnea: No (ISAEL PRE SCREEN NEGATIVE) - Cardiovascular System Hx Hypertension: No Hx Heart Attack/AMI: No Hx Percutaneous Transluminal Coronary Angioplasty (PTCA): No Hx Cardia Arrhythmia: No - Central Nervous System CVA: No Hx Psychiatric Problems: Yes (anxiety) - Gastrointestinal Hx Gastroesophageal Reflux Disease: No (gastroparesis 2/2 g-tube) - Endocrine Hx Renal Disease: No Hx Liver Disease: No Hx Insulin Dependent Diabetes: No Hx Non-Insulin Dependent Diabetes: No Hx Thyroid Disease: No - Other Systems Hx Obesity: No - Additional Comments Anesthesia Medical History Comments: No hx anesthetic complications.
[2020-02-19] MEDS ORDERED: ROCURONIUM 50 MG/5 ML INJ IV ONE ×2 (07:29→09:21)
[2020-02-19] MEDS ORDERED: LIDOCAINE MPF (2%) 20 MG/1 ML VIAL 5 ML ONE (07:29)
[2020-02-19] MEDS ORDERED: ceFAZolin/Water 2 GM/20 ML 2 GM/20 ML SYRINGE IV ONE (07:29)
[2020-02-19] MEDS ORDERED: ONDANSETRON 4 MG/2 ML INJ ONE (07:29)
[2020-02-19] MEDS ORDERED: dexAMETHasone 20 MG/5 ML VIAL ONE (07:29)
[2020-02-19] MEDS ORDERED: propofoL 200 MG/20 ML VIAL IV ONE (07:30)
[2020-02-19] MEDS ORDERED: HYDROmorphone 1 MG/1 ML INJ ONE ×2 (07:30→10:13)
[2020-02-19] MEDS ORDERED: LIDOCAINE (1%) 10 MG/1 ML VIAL 20 ML MDV ONE (07:43)
[2020-02-19] MEDS ORDERED: BUPIVACAINE-EPINEPHRINE/PF 0.5%-1:200,000 (30 ML) VIAL INFILTRATI ONE ×2 (07:43→09:16)
[2020-02-19] MEDS ORDERED: ceFAZolin/STERILE WATER 2 GM/20 ML SYRINGE IV NR (08:00)
[2020-02-19] MEDS ORDERED: LIDOCAINE (1%) 10 MG/1 ML VIAL 20 ML MDV INFILTRATI ONE (09:16)
[2020-02-19] MEDS ORDERED: SODIUM CHLORIDE 0.9% IRR 1,000 ML BOTTLE IR ONE (09:17)
[2020-02-19] MEDS ORDERED: SILVER NITRATE APPLICATOR 1 EA TP ONE ×2 (09:57→09:58)
[2020-02-19] MEDS ORDERED: GLYCOPYRROLATE 0.4 MG/2 ML INJ ONE (10:03)
[2020-02-19] MEDS ORDERED: NEOSTIGMINE 10MG/10 ML INJ MDV ONE (10:03)
[2020-02-19] MEDS ORDERED: LACTATED RINGERS 1,000 ML ONE (10:17)
--- NOTE | 2020-02-19 10:22 | Short Stay Summary ---
Short Stay Documentation Date of service: 02/19/20 - History Principal diagnosis: abdominal pain H&P: obtained from office - Allergies and Medications Current Medications: Allergies ibuprofen Allergy (Verified 12/09/19 14:54) Swelling IV MORPHINE Allergy (Uncoded 09/10/14 11:01) Itching IV CONTRAST Adverse Reaction (Uncoded 03/13/14 11:09) Vomiting lipids Adverse Reaction (Uncoded 12/09/19 14:53) MUSCLE PAIN Home Medications Medication Instructions Recorded Confirmed Last Taken Type Iron 325 MG 325 mg PO DAILY 11/13/18 02/04/20 11/19/18 History 325 mg clonazePAM [KlonoPIN] 2 mg PO QHS 12/09/19 02/19/20 02/18/20 20:00 History LORazepam [Ativan] 1 mg PO BID 02/04/20 02/04/20 Unknown History Ondansetron (Nf) [Zofran TAB] 8 mg PO Q8HR PRN 02/04/20 02/04/20 Unknown History [place] 10-325 mg TAB 10 mg PO Q4HR 02/19/20 02/19/20 02/19/20 04:00 History Active Medications Acetaminophen (Tylenol) 650 mg FEEDTUBE PREOP LAURA Stop: 02/19/20 23:59 Last Admin: 02/19/20 07:30 Dose: 650 mg Documented by: Cefazolin Sodium (Ancef/Sterile Water 2 Gm/20 Ml) 2 gm IV PREOP NR Stop: 02/19/20 21:00 Gabapentin (Gabapentin) 500 mg FEEDTUBE PREOP LAURA Stop: 02/19/20 23:59 Last Admin: 02/19/20 07:30 Dose: 500 mg Documented by: Hydromorphone HCl (Dilaudid) 0.5 mg IV Q10MIN PRN PRN Reason: Pain , Severe (7-10) Lactated Ringer's (Lactated Ringers) 1,000 mls @ 100 mls/hr IV DIRECT LAURA Stop: 02/19/20 23:59 Last Admin: 02/19/20 07:30 Dose: 100 mls/hr Documented by: Midazolam HCl (Versed) 2 mg IV PREOP NR Stop: 02/19/20 23:59 Last Admin: 02/19/20 07:41 Dose: 2 mg Documented by: Scopolamine (Transderm-Scop) 1 each TD PREOP NR Stop: 02/22/20 05:59 - Brief post op/procedure progress note Date of procedure: 02/19/20 Pre-op diagnosis: abdominal pain Post-op diagnosis: other (abdominal pain, intraabdominal adhesions) Procedure: diagnostic laparoroscopy, lysis of adhesions Anesthesia: GETA, local Findings: Omental adhesions to the midline anterior abdominal wall and to the area of jejunum with J tube No intestinal obstruction No twisting of bowel at J tube site J tube able to be advanced and balloon inflated to 2.5 cc under direct laparoscopic visualization Surgeon: ZEUS STEINER Fisher Seal: OLIVER IRENE Estimated blood loss: minimal Pathology: none Condition: stable - Hospital course Hospital course: Pt observed in PACU and discharged to home in stable condition when criteria met - Disposition Condition at discharge: Good Disposition: DC-01 TO HOME OR SELFCARE Short Stay Discharge Plan Activity: other (no heavy lifting) Diet: other (TPN, ok to flush J tube with water) Wound: open to air, other (may shower tomorrow, pat incisions dry and do not scrub or submerge incisions in water until seen by Dr. Steiner) Follow up with: SUDHIR CHAVEZ MD [Primary Care Provider] - 7 Days ZEUS STEINER DO [Staff Physician] - 14 Days Prescriptions: HYDROcodone/APAP 10-325 [[place] 10/325] 1 each PO Q6HR PRN #15 tablet PRN Reason: Pain Ondansetron (Nf) [Zofran TAB] 8 mg PO Q8HR PRN #30 tab PRN Reason: Nausea
[2020-02-19] MEDS: HYDROmorphone 1 MG/1 ML INJ IV PRN ×3 (10:40→11:20)
[2020-02-19] MEDS ORDERED: HYDROcodone/ACETAMINOPHEN 10-325MG TAB PO PRN (11:18)
[2020-02-19 11:59] VITALS: BP 120/83
--- NOTE | 2020-02-19 14:25 | Post Anesthesia Evaluation ---
- Post Anesthesia Evaluation Patient Participated: Yes Airway Patent: Yes Stable Respiratory Function: Yes Nausea/Vomiting: No Temp > 96.8F: Yes Pain Manageable: Yes Adequeate Hydration: Yes Anesthesia Complications: No
--- NOTE | 2020-02-19 19:37 | Operative Report ---
Operative Report Operative Report: Date of procedure: 02/19/20 Pre-op diagnosis: abdominal pain Post-op diagnosis: other (abdominal pain, intraabdominal adhesions) Procedure: diagnostic laparoroscopy, lysis of adhesions Anesthesia: GETA, local Findings: Omental adhesions to the midline anterior abdominal wall and to the area of jejunum with J tube No intestinal obstruction No twisting of bowel at J tube site J tube able to be advanced and balloon inflated to 2.5 cc under direct laparoscopic visualization Surgeon: ZEUS STEINER Cnc Grinder: OLIVER IRENE Estimated blood loss: minimal Pathology: none Condition: stable - Hospital course Hospital course: Pt observed in PACU and discharged to home in stable condition when criteria met HPI and indication: Patient is a 44-year-old female who has a history of gastroparesis and chronic abdominal pain, jejunal tube placed greater than 10 years ago which has required multiple exchanges by interventional radiology. The patient has been managed conservatively and has done well with jejunal tube exchanges however is now having constant left-sided abdominal pain which is life limiting. The J-tube has not been able to be used due to pain in the area of the tube along with leakage. The patient has been placed on TPN. As the patient has failed conservative management, a diagnostic laparoscopy was discussed with her. A lengthy discussion was had regarding expectations from the surgery and the possibility of scar tissue from prior operations being the cause of her abdominal pain. All risk, benefits, alternatives surgery discussed and questions answered. Consent obtained for diagnostic laparoscopy, possible bowel resection. Received in detail: The patient was done from the prep area, take back to operating room placed operating table in supine position. After anesthesia was induced a Martínez catheter was sterilely placed by the circulating nurse. The abdomen is prepped and draped in usual sterile fashion a timeout performed. Local anesthetic was infiltrated to all skin incision sites. The patient had a midline incision from prior exploratory laparotomy. A small incision was made in the epigastrium along the old scar and dissection carried down through skin and subcutaneous tissue using Bovie electrocautery. Using a cutdown method the abdomen was entered and a 12 mm trocar was placed through this incision. The abdomen was insufflated to 15 mmHg and inspected. There is no underlying injury to any of the abdominal structures. There were adhesions from the omentum seen to the midline anterior abdominal wall as well as to the jejunum which was adhesed to the anterior abdominal wall in the area of the J-tube. An additional right upper quadrant and right lower quadrant 5 mm trochars were then placed under direct visualization. Using the harmonic scalpel the adhesions from the omentum to the anterior abdominal wall were dissected. Hemostasis was ensured along the way. The adhesions to the jejunum from the omentum were also very meticulously dissected using a combination of sharp dissection with EndoShears and harmonic scalpel. The small bowel was ran proximally from the jejunum adhered to the anterior abdominal wall as well as distally and there were no adhesions and the bowel was decompressed without evidence of obstruction. The J-tube was advanced into the jejunum under direct visualization and the balloon inflated with 2.5 cc sterile water. The balloon was seen to inflate and then was pulled back to be flush against the anterior abdominal wall. The tube was flushed with sterile water and flushed very easily without resistance and there was no leakage around the tube. The ports were then removed under direct visualization. The 12 mm port was closed with interrupted 0 Vicryl suture. The remainder of the ports were infiltrated with local anesthetic and closed using 4-0 Monocryl subcuticular stitches and skin glue. Dressing was applied to the J-tube and secured with paper tape. At the end of the case, all sponge, instrument, sharp counts were correct x2. The martínez catheter was removed and the patient was awoken from anesthesia extubated and taken to PACU in stable condition.
== END 2020-02-19 12:30 | disposition home or self-care (01) ==
LOC: OR 06:43
PROVIDERS: ATTEND Surgery
DX: R10.9 Unspecified abdominal pain (principal); Z11.59 Encounter for screening for other viral diseases; K66.0 Peritoneal adhesions (postprocedural) (postinfection); F17.210 Nicotine dependence, cigarettes, uncomplicated; K94.13 Enterostomy malfunction; K94.19 Other complications of enterostomy; K21.9 Gastro-esophageal reflux disease without esophagitis; F41.9 Anxiety disorder, unspecified; Z79.899 Other long term (current) drug therapy; Z90.49 Acquired absence of other specified parts of digestive tract; Z98.82 Breast implant status; Z90.710 Acquired absence of both cervix and uterus; Z98.890 Other specified postprocedural states; Z88.8 Allergy status to other drugs, medicaments and biological substances; Z86.2 Personal history of diseases of the blood and blood-forming organs and certain disorders involving the immune mechanism
CPT/HCPCS: 49329; C1765; J0690; J1100; J1170; J1642; J2250; J2405; J2704; J2710; J7120; U0003